=== PATIENT | female | born 1955 | race Hispanic/Latino ===

== ENCOUNTER 2023-06-23 06:39 | Emergency (ER) | payer OTHER ==
--- OUTSIDE RECORDS SUMMARY | 2023-06-23 06:45 | XMS REPORT | Continuity of Care Document ---
Author Name Unknown Address [address] [facility] [address] [place] [address] [facility] thconnect Address [address] [facility] [address] [place] [address] Care Team Providers Care Genetic Counsellor Name Role Phone Олег Bravo MD Primary Care Physician Gurjit_EFRAÍN Attending Clinician Unavailabl e [email or web address]_S Attending Clinician Unavaila JAYSON Brown Attending Clinician Unavailable Tammy Louise Attending Clinician [phone] Jayson Rothman DO Attending Clinician [phone] YEIMI HAJI Attending Clinician Unavailab Yeimi Garsia DO Attending Clinician [phone] Maco Rosales MD Attending Clinician [phone] MACO ROSALES Attending Clinician Unavailable TITI PARKER Attending Clinician Unavailable Doctor Unassigned, [place] Attending Clinician U navailable 2, [facility] Attending Clinician Unavailable Олег Bravo MD Attending Clinician + [phone] ОЛЕГ BRAVO Attending Clinician Unaamy lable Lab, [facility] Fam Pob I Attending Clinician Unavailab Sandra Randall Attending Clinician [phone] Pcp, Patient Does Not Have A Attending Clinician Delilah RICHARD, Marie Pettit Attending Clinician [phone] Tonio PARRA Vandana Hunter Attending Clinician Alma Robertson MD Attending Clinician [phone] Michelle Guadalupe MD Attending Clinician [phone] MICHELLE GUADALUPE Attending Clinician Unavailable Blayne LAMARIsrael Attending Clinician [phone] Jatinder Admitting Clinician Unavailabl e [email or web address]_S Admitting Clinician Unavaila JAYSON Brown Admitting Clinician Unavailable Alma Robertson MD Admitting Clinician ALMA ROBERTSON Admitting Clinician Unavailable Payers Payer Name Policy Type Policy Number Effective Date Expirati on Date Source [employer] (EPO) [id number] 2013 00:00:00 [employer] COMMERCIAL OUT OF NETWORK [id number] 2013 00:00:00 Problems Condition Name Condition Details Condition Category Status Onset Date Resolution Date Last Treatment Date Treating Clinician Comments Source Benign essential hypertensi on Benign Essential Hypertensi on Problem Active 11-04 00:00: 00 [facility] Type 2 diabetes mellitus Type 2 Diabetes Mellitus Problem Active 11-04 00:00: 00 [facility] Mixed hyperlipid emia Mixed Hyperlipid emia Problem Active 11-04 00:00: 00 [facility] Fever Fever Disease Active 06-20 00:00: 00 [facility] Primary hypothyroi dism Primary hypothyroi dism Disease Active 07-08 00:00: 00 [facility] Essential hypertensi on Essential hypertensi on Disease Active 07-08 00:00: 00 [facility] Dyslipidem ia Dyslipidem ia Disease Active 07-08 00:00: 00 [facility] Metabolic syndrome X Metabolic syndrome X Disease Active 07-08 00:00: 00 [facility] Type 2 diabetes mellitus without complicati on, without long-term current use of insulin Type 2 diabetes mellitus without complicati on, without long-term current use of insulin Disease Active 07-08 00:00: 00 [facility] Primary hypothyroi dism Primary hypothyroi dism Disease Active 07-08 00:00: 00 [facility] Allergies, Adverse Reactions, Alerts Allergy Name Allergy Type Status Severity Reaction(s) Onset Date Inactive Date Treating Clinician Comments Source Codeine Propensi ty to adverse reaction s Active Unknown - See comments 2011-02 00:00: 00 Nausea, vomiting, hypervent ilation [facility] CODEINE DRUG INGREDI Active Unknown-Cmnt 2011-02 00:00: 00 [facility] Codeine Allergy to substanc e Active Nausea, Vomiting [facility] e Social History Social Habit Start Date Stop Date Quantity Comments Source History SDOH Alcohol Frequency [facility] History SDOH Alcohol Std Drinks [facility] History SDOH Alcohol Binge [facility] Exposure to SARS-CoV-2 (event) 2021-12-30 00:00:00 2022-01-09 16:43:00 Not sure [facility] Alcohol intake 2020-03-13 00:00:00 2020-03-13 00:00:00 Current non-drinker of alcohol (finding) [facility] Tobacco use and exposure 2020-03-13 00:00:00 2020-03-13 00:00:00 Never used [facility] History of Social function 2019-11-02 00:00:00 2019-11-02 00:00:00 [facility] Alcohol Comment 2019-06-21 00:00:00 2019-06-21 00:00:00 once or twice a year [facility] Sex Assigned At 1955 00:00:00 1955 00:00:00 [facility] Smoking Status Start Date Stop Date Source Never Smoker [facility] Medications Ordered Medication Name Filled Medication Name Start Date Stop Date Current Medication? Ordering Clinician Indication Dosage Frequency Signature (SIG) Comments Components Source azithromyci n 250 mg tablet 2021-02 00:00: 00 Yes [id number] 250mg Take 1 tablet by mouth in the morning. [facility] albuterol 90 mcg/actuati on inhaler 2021-02 1 00:00: 00 Yes [id number] 2{puff} Inhale 2 Puffs every 4 (four) hours as needed for Wheezing or Shortness of Breath. [facility] METFORMIN ER 500 mg 24 hr tablet 2020-02 222 00:00: 00 Yes [id number] TAKE 2 TABLETS BY MOUTH TWICE A DAY [facility] METFORMIN ER 500 mg 24 hr tablet 8 00:00: 00 Yes [id number] TAKE 2 TABLETS BY MOUTH TWICE A DAY [facility] metformin ER 500 mg 24 hr tablet 03-13 00:00: 00 Yes [id number] 1000mg Take 2 tablets by mouth 2 (two) times daily. [facility] metformin ER 500 mg 24 hr tablet 11-01 00:00: 00 03-13 00:00 :00 No [id number] 1000mg Take 2 tablets by mouth 2 (two) times daily. [facility] metformin ER 500 mg 24 hr tablet 10-09 00:00: 00 11-01 00:00 :00 No 500mg Take 1 tablet by mouth 2 (two) times daily. [facility] pneumococca l vac polyvalent (PNEUMOVAX- 23) injection 0.5 mL 06-21 19:45: 00 06-21 19:48 :00 No .5mL 0.5 mL, Intramuscu lar, ONCE, 1 dose, Thu06/22/19 at 1445, Routine [facility] irbesartan 300 mg tablet 06-21 16:52: 31 06-21 00:00 :00 No 300mg Take 300 mg by mouth daily. [facility] enoxaparin (LOVENOX) injection 40 mg 06-21 14:00: 00 Yes 40mg 40 mg, Subcutaneo us, DAILY, First dose on Thu06/22/19 at 0900, Until Discontinu ed, Routine [facility] ketorolac (TORADOL) injection 15 mg 06-21 06:15: 00 06-21 05:16 :00 No 15mg 15 mg, Slow IV Push, ONCE, 1 dose, Thu06/22/19 at 0115, Routine
sales team member approving Restricted medication : JUAN ZIMMERMAN [facility] ondansetron (ZOFRAN (PF)) injection 4 mg 06-21 04:12: 42 Yes 4mg 4 mg, Slow IV Push, Q8HPRN, Starting Thu06/21/19 at 2312, Until Discontinu ed, Routine, Nausea and Vomiting (N/V) [facility] NaCl 0.9% (NS) IV infusion 1,000 mL 06-21 03:45: 00 06-21 04:30 :00 No 1000mL at 100 mL/hr, IV Infusion, ONCE, 1 dose, Thu06/21/19 at 2245, Routine
42cc/hr for 1L total
[facility] Sliding Scale Insulin - Aspart (NOVOLOG) + Fsbg Testing 06-21 02:00: 00 Yes Subcutaneo us, TID MEALS+HS, First dose on Thu06/21/19 at 2100, Until Discontinu ed, Routine [facility] vancomycin (VANCOCIN) 1,250 mg in NaCl 0.9% (NS) 250 mL piggyback 06-21 01:45: 00 06-21 14:52 :10 No 15mg/kg 1,250 mg (rounded from 1,156.5 mg = 15 mg/kg ?77.1 kg), IV Piggyback, Q12H ABX, First dose on Thu06/21/19 at 2045, Until Discontinu ed, 250 mL
Reas on for Anti-Infec tive: Empiric Therapy for Suspected Infection< br>Empiric Therapy Site: Other
O ther site: other
D uration of therapy: 7 days [facility] piperacilli n-tazobacta m (ZOSYN) 3.375 gram/50 mL Piggyback RTU 3.375 g 06-21 01:45: 00 06-21 14:52 :10 No 3.375g 3.375 g, IV Piggyback, Q6H ABX, First dose on Thu06/21/19 at 2045, Until Discontinu ed, 50 mL
Reas on for Anti-Infec tive: Empiric Therapy for Suspected Infection< br>Empiric Therapy Site: Blood
D uration of therapy: 72 hours [facility] lidocaine (LIDODERM) 5 % (700 mg/patch) patch 1 Patch 06-20 23:15: 00 06-21 16:25 :00 No 1{patch } 1 Patch, Topical, Administer over 12 Hours, ONCE, 1 dose, 06/21/19 at 1815, Routine [facility] ketorolac (TORADOL) injection 30 mg 06-20 17:45: 00 06-20 16:28 :00 No 30mg 30 mg, Slow IV Push, ONCE, 1 dose, 06/21/19 at 1245, SID
Fa culty member approving Restricted medication : VANDANA KAPLAN [facility] ondansetron (ZOFRAN (PF)) injection 4 mg 06-20 17:30: 00 06-20 16:30 :00 No 4mg 4 mg, Slow IV Push, ONCE, 1 dose, 06/21/19 at 1230, SID [facility] NaCl 0.9% (NS) bolus infusion 1,000 mL 06-20 17:00: 00 06-20 19:20 :00 No 1000mL at 999 mL/hr, 1,000 mL, IV Infusion, ONCE, 1 dose, 06/21/19 at 1200, STAT [facility] vancomycin (VANCOCIN) 1,250 mg in NaCl 0.9% (NS) 250 mL piggyback 06-20 17:00: 00 06-20 18:57 :00 No 15mg/kg 1,250 mg (rounded from 1,156.5 mg = 15 mg/kg ?77.1 kg), IV Piggyback, ONCE, 1 dose, 06/21/19 at 1200, 250 mL
Reas on for Anti-Infec tive: Empiric Therapy for Suspected Infection< br>Empiric Therapy Site: Other
O ther site: other
D uration of therapy: 7 days [facility] losartan 100 mg tablet 05-30 00:00: 00 Yes [id number] 100mg Take 1 tablet by mouth daily. [facility] metformin ER 500 mg 24 hr tablet 05-29 00:00: 00 Yes 500mg Take 500 mg by mouth 2 (two) times daily. [facility] metformin ER 500 mg 24 hr tablet 02-25 00:00: 00 06-21 00:00 :00 No TAKE 2 TABLETS TWICE A DAY [facility] dapaglifloz in (FARXIGA) 5 mg tablet 02-25 00:00: 00 06-20 00:00 :00 No [id number] 5mg Take 1 tablet by mouth every morning. [facility] irbesartan 300 mg tablet 02-25 00:00: 00 05-30 00:00 :00 No [id number] 300mg Take 1 tablet by mouth at bedtime. [facility] ondansetron (ZOFRAN-ODT ) disintegrat ing tablet 4 mg 11-04 03:15: 00 11-04 15:14 :00 No 4mg 4 mg, Oral, ONCE, 1 dose, Thu11/03/18 at 2215, Routine [facility] acetaminoph en (TYLENOL) tablet 650 mg 11-04 02:45: 00 11-04 01:33 :00 No 650mg 650 mg, Oral, ONCE, 1 dose, Thu11/03/18 at 2145, SID [facility] ondansetron (ZOFRAN ODT) 4 mg disintegrat ing tablet 11-03 00:00: 00 06-20 00:00 :00 No [id number] 4mg Take 1 tablet by mouth every 8 (eight) hours as needed for Nausea and Vomiting (N/V). [facility] proMETHazin e (PHENERGAN) 12.5 mg in NaCl 0.9% (NS) 50 mL piggyback 11-01 16:45: 00 11-01 15:43 :00 No 12.5mg 12.5 mg, IV Piggyback, ONCE, 1 dose, Thu11/01/18 at 1145, 50 mL [facility] NaCl 0.9% (NS) bolus infusion 1,000 mL 11-01 16:00: 00 11-01 17:01 :00 No 1000mL at 999 mL/hr, 1,000 mL, IV Piggyback, ONCE, 1 dose, Thu11/01/18 at 1100, STAT [facility] ondansetron (ZOFRAN-ODT ) disintegrat ing tablet 4 mg 11-01 15:15: 00 11-01 14:06 :00 No 4mg 4 mg, Oral, ONCE, 1 dose, Thu11/01/18 at 1015, Routine [facility] cephALEXin (KEFLEX) 500 mg capsule 11-01 00:00: 00 11-09 04:59 :00 No [id number] 500mg Take 1 capsule by mouth 3 (three) times daily for 7 days. [facility] ondansetron 4 mg disintegrat ing tablet 11-01 00:00: 00 11-03 00:00 :00 No [id number] 4mg Take 1 tablet by mouth every 8 (eight) hours as needed for Nausea and Vomiting (N/V). [facility] penicillin g benzathine (BICILLIN L-A) injection 1.2 Million Units 10-12 03:45: 00 10-12 02:44 :00 No 1.210 1.2 Million Units, Intramuscu lar, ONCE, 1 dose, Thu10/11/18 at 2245, SID
Re ason for Anti-Infec tive: Empiric Therapy for Suspected Infection< br>Empiric Therapy Site: HEENT
D uration of therapy: 72 hours [facility] ketorolac (TORADOL) injection 60 mg 10-12 03:30: 00 10-12 02:45 :00 No 60mg 60 mg, Intramuscu lar, ONCE, 1 dose, 10/11/18 at 2230, SID
Fa culty member approving Restricted medication : [place] WHITNEY [facility] ibuprofen 600 mg tablet 10-11 00:00: 00 06-20 00:00 :00 No [id number] 600mg Take 1 tablet by mouth every 6 (six) hours as needed for Pain (scale 4-6). [facility] irbesartan 300 mg tablet 09-20 00:00: 00 Yes [id number] 300mg Take 1 tablet by mouth at bedtime. [facility] flash glucose sensor (FREESTYLE ADELSO 14 DAY SENSOR) Kit 06-28 00:00: 00 Yes [id number] 1{each} 1 Each every 14 (fourteen) days. [facility] flash glucose scanning reader (FREESTYLE ADELSO 14 DAY READER) Misc 06-28 00:00: 00 03-13 00:00 :00 No [id number] 1{each} 1 Each daily. [facility] irbesartan 300 mg tablet 06-28 00:00: 00 09-20 00:00 :00 No [id number] 300mg Take 1 tablet by mouth at bedtime. [facility] METFORMIN ER 500 mg 24 hr tablet 06-21 00:00: 00 Yes TAKE 2 TABLETS TWICE A DAY [facility] loratadine 10 mg tablet 04-21 00:00: 00 06-20 00:00 :00 No [id number] 10mg Take 1 tablet by mouth daily. [facility] hydrOXYzine 10 mg tablet 04-21 00:00: 00 06-20 00:00 :00 No [id number] 10mg Take 1 tablet by mouth every 6 (six) hours. [facility] irbesartan 150 mg tablet Take 1 tablet every day by oral route. irbesartan 150 mg tablet Take 1 tablet every day by oral route. No 1 Q1D irbesartan 150 mg tablet Take 1 tablet every day by oral route. [facility] Ozempic 2 mg/dose (8 mg/3 mL) subcutaneou s pen injector Inject 2 mg every week by subcutaneou s route. Ozempic 2 mg/dose (8 mg/3 mL) subcutaneou s pen injector Inject 2 mg every week by subcutaneou s route. No 2mg Q1W Ozempic 2 mg/dose (8 mg/3 mL) subcutaneo us pen injector Inject 2 mg every week by subcutaneo us route. [facility] pravastatin 20 mg tablet Take 1 tablet every day by oral route at bedtime. pravastatin 20 mg tablet Take 1 tablet every day by oral route at bedtime. No 1 Q1D pravastati n 20 mg tablet Take 1 tablet every day by oral route at bedtime. [facility] ibuprofen 800 mg tablet TAKE ONE TABLET BY MOUTH THREE TIMES A DAY ibuprofen 800 mg tablet TAKE ONE TABLET BY MOUTH THREE TIMES A DAY No ibuprofen 800 mg tablet TAKE ONE TABLET BY MOUTH THREE TIMES A DAY [facility] irbesartan 150 mg tablet TAKE 1 TABLET BY MOUTH EVERY DAY irbesartan 150 mg tablet TAKE 1 TABLET BY MOUTH EVERY DAY No irbesartan 150 mg tablet TAKE 1 TABLET BY MOUTH EVERY DAY [facility] Ozempic 2 mg/dose (8 mg/3 mL) subcutaneou s pen injector INJECT 2 MG SUBCUTANEOU SLY ONCE WEEKLY Ozempic 2 mg/dose (8 mg/3 mL) subcutaneou s pen injector INJECT 2 MG SUBCUTANEOU SLY ONCE WEEKLY No Ozempic 2 mg/dose (8 mg/3 mL) subcutaneo us pen injector INJECT 2 MG SUBCUTANEO USLY ONCE WEEKLY [facility] pravastatin 20 mg tablet Take 1 tablet every day by oral route at bedtime. pravastatin 20 mg tablet Take 1 tablet every day by oral route at bedtime. No pravastati n 20 mg tablet Take 1 tablet every day by oral route at bedtime. [facility] amoxicillin 875 mg-potassiu m clavulanate 125 mg tablet Take 1 tablet every 12 hours by oral route with meal(s) for 10 days. amoxicillin 875 mg-potassiu m clavulanate 125 mg tablet Take 1 tablet every 12 hours by oral route with meal(s) for 10 days. No 1 Q12H amoxicilli n 875 mg-potassi um clavulanat e 125 mg tablet Take 1 tablet every 12 hours by oral route with meal(s) for 10 days. [facility] ibuprofen 800 mg tablet Take 1 tablet 3 times a day by oral route with meal(s). for pain/swelli ng ibuprofen 800 mg tablet Take 1 tablet 3 times a day by oral route with meal(s). for pain/swelli ng No 1 TID ibuprofen 800 mg tablet Take 1 tablet 3 times a day by oral route with meal(s). for pain/swell ing [facility] irbesartan 150 mg tablet Take 1 tablet every day by oral route. irbesartan 150 mg tablet Take 1 tablet every day by oral route. No 1 Q1D irbesartan 150 mg tablet Take 1 tablet every day by oral route. [facility] Ozempic 2 mg/dose (8 mg/3 mL) subcutaneou s pen injector Inject 2 mg every week by subcutaneou s route. Ozempic 2 mg/dose (8 mg/3 mL) subcutaneou s pen injector Inject 2 mg every week by subcutaneou s route. No 2mg Q1W Ozempic 2 mg/dose (8 mg/3 mL) subcutaneo us pen injector Inject 2 mg every week by subcutaneo us route. [facility] pravastatin 20 mg tablet Take 1 tablet every day by oral route at bedtime. pravastatin 20 mg tablet Take 1 tablet every day by oral route at bedtime. No 1 Q1D pravastati n 20 mg tablet Take 1 tablet every day by oral route at bedtime. [facility] Immunizations Ordered Immunization Name Filled Immunization Name Date Status Comments Source SARS-COV-2 COVID-19 PFIZER VACCINE 2020-04-13 00:00:00 Completed [facility] SARS-COV-2 COVID-19 PFIZER VACCINE 2020-04-13 00:00:00 Completed [facility] SARS-COV-2 COVID-19 PFIZER VACCINE 2020-04-13 00:00:00 Completed [facility] SARS-COV-2 COVID-19 PFIZER VACCINE 2020-04-13 00:00:00 Completed [facility] SARS-COV-2 COVID-19 PFIZER VACCINE 2020-04-13 00:00:00 Completed [facility] SARS-COV-2 COVID-19 PFIZER VACCINE 2020-04-13 00:00:00 Completed [facility] SARS-COV-2 COVID-19 PFIZER VACCINE 2020-04-13 00:00:00 Completed [facility] Zoster Vaccine Recombinant 2020-03-21 00:00:00 Completed [facility] Zoster Vaccine Recombinant 2020-03-21 00:00:00 Completed [facility] Zoster Vaccine Recombinant 2020-03-21 00:00:00 Completed [facility] Zoster Vaccine Recombinant 2020-03-21 00:00:00 Completed [facility] Zoster Vaccine Recombinant 2020-03-21 00:00:00 Completed [facility] Zoster Vaccine Recombinant 2020-03-21 00:00:00 Completed [facility] Zoster Vaccine Recombinant 2020-03-21 00:00:00 Completed [facility] Zoster Vaccine Recombinant 2020-03-21 00:00:00 Completed [facility] Zoster Vaccine Recombinant 2020-03-21 00:00:00 Completed [facility] SARS-COV-2 COVID-19 PFIZER VACCINE 2020-03-13 00:00:00 Completed [facility] SARS-COV-2 COVID-19 PFIZER VACCINE 2020-03-13 00:00:00 Completed [facility] SARS-COV-2 COVID-19 PFIZER VACCINE 2020-03-13 00:00:00 Completed [facility] SARS-COV-2 COVID-19 PFIZER VACCINE 2020-03-13 00:00:00 Completed [facility] SARS-COV-2 COVID-19 PFIZER VACCINE 2020-03-13 00:00:00 Completed [facility] SARS-COV-2 COVID-19 PFIZER VACCINE 2020-03-13 00:00:00 Completed [facility] SARS-COV-2 COVID-19 PFIZER VACCINE 2020-03-13 00:00:00 Completed [facility] SARS-COV-2 COVID-19 PFIZER VACCINE 2020-03-13 00:00:00 Completed [facility] SARS-COV-2 COVID-19 PFIZER VACCINE 2020-03-13 00:00:00 Completed [facility] SARS-COV-2 COVID-19 PFIZER VACCINE 2020-03-13 00:00:00 Completed [facility] SARS-COV-2 COVID-19 PFIZER VACCINE 2020-03-13 00:00:00 Completed [facility] TDAP 2019-11-28 00:00:00 Completed [facility] TDAP 2019-11-28 00:00:00 Completed [facility] TDAP 2019-11-28 00:00:00 Completed [facility] TDAP 2019-11-28 00:00:00 Completed [facility] TDAP 2019-11-28 00:00:00 Completed [facility] TDAP 2019-11-28 00:00:00 Completed [facility] Pneumococcal Polysaccharide, PPSV23 (PNEUMOVAX) 2019-11-28 00:00:00 Completed [facility] TDAP 2019-11-28 00:00:00 Completed [facility] Pneumococcal Polysaccharide, PPSV23 (PNEUMOVAX) 2019-11-28 00:00:00 Completed [facility] TDAP 2019-11-28 00:00:00 Completed [facility] Pneumococcal Polysaccharide, PPSV23 (PNEUMOVAX) 2019-11-28 00:00:00 Completed [facility] TDAP 2019-11-28 00:00:00 Completed [facility] Pneumococcal Polysaccharide, PPSV23 (PNEUMOVAX) 2019-11-28 00:00:00 Completed [facility] TDAP 2019-11-28 00:00:00 Completed [facility] Pneumococcal Polysaccharide, PPSV23 (PNEUMOVAX) 2019-11-28 00:00:00 Completed [facility] TDAP 2019-11-28 00:00:00 Completed [facility] Pneumococcal Polysaccharide, PPSV23 (PNEUMOVAX) 2019-11-28 00:00:00 Completed [facility] TDAP 2019-11-28 00:00:00 Completed [facility] Pneumococcal Polysaccharide, PPSV23 (PNEUMOVAX) 2019-11-28 00:00:00 Completed [facility] TDAP 2019-11-28 00:00:00 Completed [facility] Pneumococcal Polysaccharide, PPSV23 (PNEUMOVAX) 2019-11-28 00:00:00 Completed [facility] TDAP 2019-11-28 00:00:00 Completed [facility] Pneumococcal Polysaccharide, PPSV23 (PNEUMOVAX) 2019-11-28 00:00:00 Completed [facility] TDAP 2019-11-28 00:00:00 Completed [facility] Pneumococcal Polysaccharide, PPSV23 (PNEUMOVAX) 2019-11-28 00:00:00 Completed [facility] TDAP 2019-11-28 00:00:00 Completed [facility] Pneumococcal Polysaccharide, PPSV23 (PNEUMOVAX) 2019-11-28 00:00:00 Completed [facility] TDAP 2019-11-28 00:00:00 Completed [facility] Pneumococcal Polysaccharide, PPSV23 (PNEUMOVAX) 2019-11-28 00:00:00 Completed [facility] Influenza Virus Vaccine 2019-10-18 00:00:00 Completed [facility] Zoster(Zostavax)(Clarisse ngles) 2019-10-18 00:00:00 Completed [facility] Influenza Virus Vaccine 2019-10-18 00:00:00 Completed [facility] Zoster(Zostavax)(Clarisse ngles) 2019-10-18 00:00:00 Completed [facility] Influenza Virus Vaccine 2019-10-18 00:00:00 Completed [facility] Zoster(Zostavax)(Clarisse ngles) 2019-10-18 00:00:00 Completed [facility] Influenza Virus Vaccine 2019-10-18 00:00:00 Completed [facility] Zoster(Zostavax)(Clarisse ngles) 2019-10-18 00:00:00 Completed [facility] Influenza Virus Vaccine 2019-10-18 00:00:00 Completed [facility] Zoster(Zostavax)(Clarisse ngles) 2019-10-18 00:00:00 Completed [facility] Influenza Virus Vaccine 2019-10-18 00:00:00 Completed [facility] Zoster(Zostavax)(Clarisse ngles) 2019-10-18 00:00:00 [facility] [facility] Influenza Virus Vaccine 2019-10-18 00:00:00 Completed [facility] Zoster(Zostavax)(Clarisse ngles) 2019-10-18 00:00:00 Completed [facility] Zoster Vaccine Recombinant 2019-10-18 00:00:00 Completed [facility] Influenza Virus Vaccine 2019-10-18 00:00:00 Completed [facility] Zoster(Zostavax)(Clarisse ngles) 2019-10-18 00:00:00 Completed [facility] Zoster Vaccine Recombinant 2019-10-18 00:00:00 Completed [facility] Influenza Virus Vaccine 2019-10-18 00:00:00 Completed [facility] Zoster(Zostavax)(Clarisse ngles) 2019-10-18 00:00:00 Completed [facility] Zoster Vaccine Recombinant 2019-10-18 00:00:00 Completed [facility] Influenza Virus Vaccine 2019-10-18 00:00:00 Completed [facility] Zoster(Zostavax)(Clarisse ngles) 2019-10-18 00:00:00 Completed [facility] Zoster Vaccine Recombinant 2019-10-18 00:00:00 Completed [facility] Influenza Virus Vaccine 2019-10-18 00:00:00 Completed [facility] Zoster(Zostavax)(Clarisse ngles) 2019-10-18 00:00:00 Completed [facility] Zoster Vaccine Recombinant 2019-10-18 00:00:00 Completed [facility] Influenza Virus Vaccine 2019-10-18 00:00:00 Completed [facility] Zoster(Zostavax)(Clarisse ngles) 2019-10-18 00:00:00 Completed [facility] Zoster Vaccine Recombinant 2019-10-18 00:00:00 Completed [facility] Influenza Virus Vaccine 2019-10-18 00:00:00 Completed [facility] Zoster(Zostavax)(Clarisse ngles) 2019-10-18 00:00:00 Completed [facility] Zoster Vaccine Recombinant 2019-10-18 00:00:00 Completed [facility] Influenza Virus Vaccine 2019-10-18 00:00:00 Completed [facility] Zoster(Zostavax)(Clarisse ngles) 2019-10-18 00:00:00 Completed [facility] Zoster Vaccine Recombinant 2019-10-18 00:00:00 Completed [facility] Influenza Virus Vaccine 2019-10-18 00:00:00 Completed [facility] Zoster(Zostavax)(Clarisse ngles) 2019-10-18 00:00:00 Completed [facility] Zoster Vaccine Recombinant 2019-10-18 00:00:00 Completed [facility] Influenza Virus Vaccine 2019-10-18 00:00:00 Completed [facility] Zoster(Zostavax)(Clarisse ngles) 2019-10-18 00:00:00 Completed [facility] Zoster Vaccine Recombinant 2019-10-18 00:00:00 Completed [facility] Influenza Virus Vaccine 2019-10-18 00:00:00 Completed [facility] Zoster(Zostavax)(Clarisse ngles) 2019-10-18 00:00:00 Completed [facility] Zoster Vaccine Recombinant 2019-10-18 00:00:00 Completed [facility] Influenza Virus Vaccine 2019-10-18 00:00:00 Completed [facility] Zoster(Zostavax)(Clarisse ngles) 2019-10-18 00:00:00 Completed [facility] Zoster Vaccine Recombinant 2019-10-18 00:00:00 Completed [facility] Influenza Virus Vaccine 2019-10-18 00:00:00 Completed [facility] Zoster(Zostavax)(Clarisse ngles) 2019-10-18 00:00:00 Completed [facility] Zoster Vaccine Recombinant 2019-10-18 00:00:00 Completed [facility] Influenza Virus Vaccine 2019-10-18 00:00:00 Completed [facility] Zoster(Zostavax)(Clarisse ngles) 2019-10-18 00:00:00 Completed [facility] Zoster Vaccine Recombinant 2019-10-18 00:00:00 Completed [facility] Influenza Virus Vaccine 2019-10-18 00:00:00 Completed [facility] Zoster(Zostavax)(Clarisse ngles) 2019-10-18 00:00:00 Completed [facility] Zoster Vaccine Recombinant 2019-10-18 00:00:00 Completed [facility] Influenza Virus Vaccine 2019-10-18 00:00:00 Completed [facility] Zoster(Zostavax)(Clarisse ngles) 2019-10-18 00:00:00 Completed [facility] Zoster Vaccine Recombinant 2019-10-18 00:00:00 Completed [facility] Influenza Virus Vaccine 2019-10-18 00:00:00 Completed [facility] Zoster(Zostavax)(Clarisse fried) 2019-10-18 00:00:00 Completed [facility] Zoster Vaccine Recombinant 2019-10-18 00:00:00 Completed [facility] Pneumococcal Polysaccharide, PPSV23 (PNEUMOVAX) 2019-06-22 00:00:00 Completed [facility] Pneumococcal Polysaccharide, PPSV23 (PNEUMOVAX) 2019-06-22 00:00:00 Completed [facility] Pneumococcal Polysaccharide, PPSV23 (PNEUMOVAX) 2019-06-22 00:00:00 Completed [facility] Pneumococcal Polysaccharide, PPSV23 (PNEUMOVAX) 2019-06-22 00:00:00 Completed [facility] Pneumococcal Polysaccharide, PPSV23 (PNEUMOVAX) 2019-06-22 00:00:00 Completed [facility] Pneumococcal Polysaccharide, PPSV23 (PNEUMOVAX) 2019-06-22 00:00:00 Completed [facility] Pneumococcal Polysaccharide, PPSV23 (PNEUMOVAX) 2019-06-22 00:00:00 Completed [facility] Pneumococcal Polysaccharide, PPSV23 (PNEUMOVAX) 2019-06-22 00:00:00 Completed [facility] Pneumococcal Polysaccharide, PPSV23 (PNEUMOVAX) 2019-06-22 00:00:00 Completed [facility] Pneumococcal Polysaccharide, PPSV23 (PNEUMOVAX) 2019-06-22 00:00:00 Completed [facility] Pneumococcal Polysaccharide, PPSV23 (PNEUMOVAX) 2019-06-22 00:00:00 Completed [facility] Pneumococcal Polysaccharide, PPSV23 (PNEUMOVAX) 2019-06-22 00:00:00 Completed [facility] Pneumococcal Polysaccharide, PPSV23 (PNEUMOVAX) 2019-06-22 00:00:00 Completed [facility] Pneumococcal Polysaccharide, PPSV23 (PNEUMOVAX) 2019-06-22 00:00:00 Completed [facility] Pneumococcal Polysaccharide, PPSV23 (PNEUMOVAX) 2019-06-22 00:00:00 Completed [facility] Pneumococcal Polysaccharide, PPSV23 (PNEUMOVAX) 2019-06-22 00:00:00 Completed [facility] Pneumococcal Polysaccharide, PPSV23 (PNEUMOVAX) 2019-06-22 00:00:00 Completed [facility] Pneumococcal Polysaccharide, PPSV23 (PNEUMOVAX) 2019-06-22 00:00:00 Completed [facility] Pneumococcal Polysaccharide, PPSV23 (PNEUMOVAX) 2019-06-22 00:00:00 Completed [facility] Pneumococcal Polysaccharide, PPSV23 (PNEUMOVAX) 2019-06-22 00:00:00 Completed [facility] Pneumococcal Polysaccharide, PPSV23 (PNEUMOVAX) 2019-06-22 00:00:00 Completed [facility] Pneumococcal Polysaccharide, PPSV23 (PNEUMOVAX) 2019-06-22 00:00:00 Completed [facility] Pneumococcal Polysaccharide, PPSV23 (PNEUMOVAX) 2019-06-22 00:00:00 Completed [facility] Pneumococcal Polysaccharide, PPSV23 (PNEUMOVAX) 2019-06-22 00:00:00 Completed [facility] Pneumococcal Polysaccharide, PPSV23 (PNEUMOVAX) 2019-06-22 00:00:00 Completed [facility] Pneumococcal Polysaccharide, PPSV23 (PNEUMOVAX) 2019-06-22 00:00:00 Completed [facility] Pneumococcal Polysaccharide, PPSV23 (PNEUMOVAX) 2019-06-22 00:00:00 Completed [facility] Pneumococcal Polysaccharide, PPSV23 (PNEUMOVAX) 2019-06-22 00:00:00 Completed [facility] Pneumococcal Polysaccharide, PPSV23 (PNEUMOVAX) 2019-06-22 00:00:00 Completed [facility] Influenza Virus Vaccine 2018-11-08 00:00:00 Completed [facility] Influenza Virus Vaccine 2018-11-08 00:00:00 Completed [facility] Influenza Virus Vaccine 2018-11-08 00:00:00 Completed [facility] Influenza Virus Vaccine 2018-11-08 00:00:00 Completed [facility] Influenza Virus Vaccine 2018-11-08 00:00:00 Completed [facility] Influenza Virus Vaccine 2018-11-08 00:00:00 Completed [facility] Influenza Virus Vaccine 2018-11-08 00:00:00 Completed [facility] Influenza Virus Vaccine 2018-11-08 00:00:00 Completed [facility] Influenza Virus Vaccine 2018-11-08 00:00:00 Completed [facility] Influenza Virus Vaccine 2018-11-08 00:00:00 Completed [facility] Influenza Virus Vaccine 2018-11-08 00:00:00 Completed [facility] Influenza Virus Vaccine 2018-11-08 00:00:00 Completed [facility] Influenza Virus Vaccine 2018-11-08 00:00:00 Completed [facility] Influenza Virus Vaccine 2018-11-08 00:00:00 Completed [facility] Influenza Virus Vaccine 2018-11-08 00:00:00 Completed [facility] Influenza Virus Vaccine 2018-11-08 00:00:00 Completed [facility] Influenza Virus Vaccine 2018-11-08 00:00:00 Completed [facility] Influenza Virus Vaccine 2018-11-08 00:00:00 Completed [facility] Influenza Virus Vaccine 2018-11-08 00:00:00 Completed [facility] Influenza Virus Vaccine 2018-11-08 00:00:00 Completed [facility] Influenza Virus Vaccine 2018-11-08 00:00:00 Completed [facility] Influenza Virus Vaccine 2018-11-08 00:00:00 Completed [facility] Influenza Virus Vaccine 2018-11-08 00:00:00 Completed [facility] Influenza Virus Vaccine 2018-11-08 00:00:00 Completed [facility] Influenza Virus Vaccine 2018-11-08 00:00:00 Completed [facility] Influenza Virus Vaccine 2018-11-08 00:00:00 Completed [facility] Influenza Virus Vaccine 2018-11-08 00:00:00 Completed [facility] Influenza Virus Vaccine 2018-11-08 00:00:00 Completed [facility] Influenza Virus Vaccine 2018-11-08 00:00:00 Completed [facility] Influenza Virus Vaccine 2018-11-08 00:00:00 Completed [facility] Influenza Virus Vaccine 2018-11-08 00:00:00 Completed [facility] Influenza Virus Vaccine 2018-11-08 00:00:00 Completed [facility] Influenza Virus Vaccine 2018-11-08 00:00:00 Completed [facility] Influenza Virus Vaccine 2018-11-08 00:00:00 Completed [facility] Influenza Virus Vaccine 2018-11-08 00:00:00 Completed [facility] Pneumococcal conjugate PCV20, polysaccharide [id number] conjugate, adjuvant, PF Pneumococcal conjugate PCV20, polysaccharide [id number] conjugate, adjuvant, PF Unknown Completed [facility] Influenza vaccine, quadrivalent, adjuvanted - ML Influenza vaccine, quadrivalent, adjuvanted - ML Unknown Completed [facility] influenza, high-dose, quadrivalent - ML influenza, high-dose, quadrivalent - ML Unknown Completed [facility] influenza, injectable, quadrivalent, preservative free - ML influenza, injectable, quadrivalent, preservative free - ML Unknown Completed [facility] zoster recombinant - ML zoster recombinant - ML Unknown Completed [facility] Tdap - ML Tdap - ML Unknown Completed [facility] zoster recombinant - ML zoster recombinant - ML Unknown Completed [facility] influenza, injectable, quadrivalent, preservative free - ML influenza, injectable, quadrivalent, preservative free - ML Unknown Completed [facility] pneumococcal polysaccharide PPV23 - ML pneumococcal polysaccharide PPV23 - ML Unknown Completed [facility] Influenza Virus Vaccine Unknown Completed [facility] Pneumococcal Polysaccharide, PPSV23 (PNEUMOVAX) Unknown Completed [facility] Influenza Virus Vaccine Unknown Completed [facility] Zoster(Zostavax)(Clarisse ngles) Unknown Completed [facility] Zoster Vaccine Recombinant Unknown Completed [facility] TDAP Unknown Completed [facility] Pneumococcal Polysaccharide, PPSV23 (PNEUMOVAX) Unknown Completed [facility] SARS-COV-2 COVID-19 PFIZER VACCINE Unknown Completed [facility] Zoster Vaccine Recombinant Unknown Completed [facility] Vital Signs Vital Name Observation Time Observation Value Comments S ource BMI (Body Mass Index) 2023-03-24 00:00:00 28.2 kg/m2 [facility] Height 2023-03-24 00:00:00 64 [in_i] [facility] BP Diastolic 2023-03-24 00:00:00 91 mm[Hg] [facility] BP Systolic 2023-03-24 00:00:00 155 mm[Hg] [facility] Body Weight 2023-03-24 00:00:00 164 [lb_av] [facility] BP Systolic 2022-11-04 00:00:00 158 mm[Hg] [facility] BP Diastolic 2022-11-04 00:00:00 83 mm[Hg] [facility] BMI (Body Mass Index) 2022-11-04 00:00:00 28 kg/m2 [facility] Body Weight 2022-11-04 00:00:00 163 [lb_av] [facility] Height 2022-11-04 00:00:00 64 [in_i] [facility] Systolic blood pressure 2022-01-09 22:44:00 156 mm[Hg] [facility] Diastolic blood pressure 2022-01-09 22:44:00 93 mm[Hg] [facility] Heart rate 2022-01-09 22:44:00 83 /min [facility] Body temperature 2022-01-09 22:44:00 36.72 Barbara [facility] Respiratory rate 2022-01-09 22:44:00 18 /min [facility] Body height 2022-01-09 22:44:00 162.6 cm [facility] Body weight 2022-01-09 22:44:00 72.576 kg [facility] BMI 2022-01-09 22:44:00 27.46 kg/m2 [facility] Oxygen saturation in Arterial blood by Pulse oximetry 2022-01-09 22:44:00 100 /min [facility] Systolic blood pressure 2021-12-06 16:08:00 171 mm[Hg] [facility] Diastolic blood pressure 2021-12-06 16:08:00 88 mm[Hg] [facility] Heart rate 2021-12-06 16:08:00 100 /min [facility] Body temperature 2021-12-06 16:08:00 37.72 Barbara [facility] Respiratory rate 2021-12-06 16:08:00 18 /min [facility] Body height 2021-12-06 16:08:00 162.6 cm [facility] Body weight 2021-12-06 16:08:00 73.483 kg [facility] BMI 2021-12-06 16:08:00 27.81 kg/m2 [facility] Oxygen saturation in Arterial blood by Pulse oximetry 2021-12-06 16:08:00 98 /min [facility] Systolic blood pressure 2020-03-13 20:09:00 131 mm[Hg] [facility] Diastolic blood pressure 2020-03-13 20:09:00 83 mm[Hg] [facility] Heart rate 2020-03-13 20:09:00 96 /min [facility] 2020-03-13 20:09:00 19 /min [facility] Body height 2020-03-13 20:09:00 162.6 cm [facility] Body weight 2020-03-13 20:09:00 73.755 kg [facility] BMI 2020-03-13 20:09:00 27.91 kg/m2 [facility] Systolic blood pressure 2019-11-02 14:20:00 134 mm[Hg] [facility] Diastolic blood pressure 2019-11-02 14:20:00 77 mm[Hg] [facility] Heart rate 2019-11-02 14:20:00 70 /min [facility] 2019-11-02 14:20:00 162.6 cm [facility] Body weight 2019-11-02 14:20:00 80.74 kg [facility] BMI 2019-11-02 14:20:00 30.55 kg/m2 [facility] Oxygen saturation in Arterial blood by Pulse oximetry 2019-11-02 14:20:00 98 /min [facility] Systolic blood pressure 2019-06-22 16:17:00 131 mm[Hg] standing [facility] Diastolic blood pressure 2019-06-22 16:17:00 72 mm[Hg] standing [facility] Heart rate 2019-06-22 16:17:00 91 /min [facility] Oxygen saturation in Arterial blood by Pulse oximetry 2019-06-22 16:17:00 98 /min [facility] Body temperature 2019-06-22 16:12:00 36.67 Barbara [facility] Respiratory rate 2019-06-22 16:12:00 18 /min [facility] Body height 2019-06-22 04:16:00 162.6 cm [facility] Body weight 2019-06-22 04:16:00 77.111 kg [facility] BMI 2019-06-22 04:16:00 29.18 kg/m2 [facility] Systolic blood pressure 2018-11-04 00:48:00 128 mm[Hg] [facility] Diastolic blood pressure 2018-11-04 00:48:00 95 mm[Hg] [facility] Heart rate 2018-11-04 00:48:00 80 /min [facility] Body temperature 2018-11-04 00:48:00 36 Barbara [facility] Respiratory rate 2018-11-04 00:48:00 15 /min [facility] Oxygen saturation in Arterial blood by Pulse oximetry 2018-11-04 00:48:00 96 /min [facility] Body weight 2018-11-04 00:42:53 79.379 kg [facility] BMI 2018-11-04 00:42:53 30.04 kg/m2 [facility] Systolic blood pressure 2018-11-01 15:45:00 147 mm[Hg] [facility] Diastolic blood pressure 2018-11-01 15:45:00 81 mm[Hg] [facility] Heart rate 2018-11-01 15:45:00 80 /min [facility] Respiratory rate 2018-11-01 15:45:00 18 /min [facility] Oxygen saturation in Arterial blood by Pulse oximetry 2018-11-01 15:45:00 100 /min [facility] Body temperature 2018-11-01 14:02:00 36.72 Barbara [facility] Body height 2018-11-01 14:02:00 162.6 cm [facility] Body weight 2018-11-01 14:02:00 79.379 kg [facility] BMI 2018-11-01 14:02:00 30.04 kg/m2 [facility] Systolic blood pressure 2018-10-12 01:17:00 165 mm[Hg] [facility] Diastolic blood pressure 2018-10-12 01:17:00 84 mm[Hg] [facility] Heart rate 2018-10-12 01:17:00 75 /min [facility] Body temperature 2018-10-12 01:17:00 36.56 Barbara [facility] Respiratory rate 2018-10-12 01:17:00 18 /min [facility] Body weight 2018-10-12 01:17:00 81.647 kg [facility] BMI 2018-10-12 01:17:00 30.90 kg/m2 [facility] Oxygen saturation in Arterial blood by Pulse oximetry 2018-10-12 01:17:00 98 /min [facility] Procedures Procedure Date / Time Performed Performing Clinician Source COMP. METABOLIC PANEL (84784) 2022-01-09 22:48:00 Jayson Rothman [facility] CBC WITH DIFF 2022-01-09 22:48:00 Jayson Rothman [facility] RAPID INFLUENZA A/B 2022-01-09 22:48:00 Gracie Rothman [facility] CONSENT/REFUSAL FOR DIAGNOSIS AND TREATMENT 2022-01-09 22:44:29 Doctor Unassigned, [place] [facility] CONSENT/REFUSAL FOR DIAGNOSIS AND TREATMENT 2021-12-06 16:07:37 Doctor Unassigned, [place] [facility] EXTERNAL PROVIDER RECORDS 2020-04-12 06:01:00 Do ctor Unassigned, [place] [facility] ASSIGNMENT OF BENEFITS 2020-03-13 20:00:38 Docto r Unassigned, [place] [facility] POCT HEMOGLOBIN A1C TEST 2020-03-13 00:00:00 Kai Rosales [facility] BI SELF-REFERRED SCREENING TOMOSYNTHESIS BILATERAL 2019-12-06 20:01:00 Олег Bravo [facility] VACCINATIONS - CONSENTS, ELIGIBILITY, HISTORY 2019-12-05 05:01:00 Doctor Unassigned, [place] [facility] POCT HEMOGLOBIN A1C TEST 2019-11-02 00:00:00 Kai Rosales [facility] MEDICATION CORRESPONDENCE 2019-10-18 05:01:00 Do ctor Unassigned, [place] [facility] POCT GLUCOSE (AUTOMATED) 2019-06-22 17:57:00 Wilver Guadalupe [facility] POCT GLUCOSE (AUTOMATED) 2019-06-22 13:58:00 Wilver Guadalupe [facility] THYROID STIMULATING HORMONE 2019-06-22 05:29:00 Gilmar Jeffries [facility] COMP. METABOLIC PANEL (72022) 2019-06-22 05:29:00 Viri Roper [facility] SEDIMENTATION RATE 2019-06-22 05:29:00 Bartolo Jeffries [facility] DIFF CONSULT INTERPRETATION 2019-06-22 05:29:00 Gilmar Jeffries [facility] CBC WITH DIFFERENTIAL 2019-06-22 05:29:00 Wilver Roper [facility] LACTIC ACID WHOLE BLOOD 2019-06-22 05:29:00 Gilmar Jeffries [facility] POCT GLUCOSE (AUTOMATED) 2019-06-22 04:16:00 Wilver Guadalupe [facility] CT ABDOMEN PELVIS WO CONTRAST 2019-06-22 03:32:14 Gilmar Jeffries [facility] XR CHEST 1 VW 2019-06-22 00:40:41 Viri Roper [facility] PROTHROMBIN TIME / INR 2019-06-21 23:19:00 Viri oRper [facility] D-DIMER 2019-06-21 23:19:00 Vandana Kaplan [facility] LACTATE DEHYDROGENASE 2019-06-21 23:18:00 Gonzalez Kaplan [facility] BETA HYDROXY-BUTYRATE 2019-06-21 23:18:00 Pancho Jeffries [facility] TROPONIN I 2019-06-21 23:18:00 [facility] LACTIC [facility]ID WHOLE BLO[facility] 2019-06-21 23:18:00 Viri Roper [facility] PROCALCITONIN 2019-06-21 23:18:00 Kesireddy, Viri U [facility] CORONAVIRUS COVID-19 TESTING 2019-06-21 21:23:00 Viri Roper [facility] LACTIC ACID WHOLE BLOOD 2019-06-21 19:03:00 Vandana Kaplan [facility] XR ABDOMEN ACUTE SERIES 2019-06-21 17:23:22 Vandana Kaplan [facility] URINALYSIS 2019-06-21 16:58:00 Vandana Kaplan [facility] URINE CULTURE 2019-06-21 16:58:00 Vandana Kaplan [facility] BLOOD CULTURE SCREEN 2019-06-21 16:25:00 Shreyas Kaplan [facility] CREATINE KINASE 2019-06-21 16:25:00 Jacquelin Viri [facility] FERRITIN SERUM 2019-06-21 16:25:00 Vandana Kaplan [facility] C-REACTIVE PROTEIN 2019-06-21 16:25:00 Carroll Kaplan [facility] TROPONIN I 2019-06-21 16:25:00 Vandana Kaplan [facility] COMP. METABOLIC PANEL (87834) 2019-06-21 16:25:00 Vandana Kaplan [facility] CBC WITH DIFFERENTIAL 2019-06-21 16:25:00 Gonzalez Kaplan [facility] GLYCOSYLATED HEMOGLOBIN (A1C) 2019-06-21 16:25:00 Jacquelin Viri [facility] N-TERMINAL PRO-BNP 2019-06-21 16:25:00 Carroll Kaplan [facility] LACTIC ACID WHOLE BLOOD 2019-06-21 16:24:00 Vandana Kaplan [facility] CORONAVIRUS COVID-19 TESTING 2019-06-21 16:24:00 Vandana Kaplan [facility] POCT GLUCOSE (AUTOMATED) 2019-06-21 16:16:00 Vandana Kaplan [facility] AGREEMENTS AUTHORIZATIONS AND IRREVOCABLE ASSIGNMENTS (FORM 2001) 2019-02-23 06:01:00 Doctor Unassigned, [place] [facility] CT CERVICAL SPINE WO CONTRAST 2018-11-04 01:35:23 Israel Whitney [facility] CT HEAD WO CONTRAST 2018-11-04 01:35:08 Israel Whitney e [facility] NOTICE OF PRIVACY PRACTICES 2018-11-04 00:39:08 Doctor Unassigned, [place] [facility] CONSENT/REFUSAL FOR DIAGNOSIS AND TREATMENT 2018-11-04 00:38:56 Doctor Unassigned, [place] [facility] URINALYSIS 2018-11-01 15:27:00 Jayson Rothman [facility] LIPASE 2018-11-01 14:08:00 Jayson Rothman [facility] COMP. METABOLIC PANEL ([id number]) 2018-11-01 14:08:00 Jayson Rothman [facility] CBC WITH DIFFERENTIAL 2018-11-01 14:08:00 Norris Rothman [facility] NOTICE OF PRIVACY PRACTICES 2018-11-01 13:53:46 Doctor Unassigned, [place] [facility] CONSENT/REFUSAL FOR DIAGNOSIS AND TREATMENT 2018-11-01 13:53:09 Doctor Unassigned, [place] [facility] RAPID STREP SCREEN FOR GROUP A 2018-10-12 01:57:00 Israel Whitney [facility] NOTICE OF PRIVACY PRACTICES 2018-10-12 01:12:30 Doctor Unassigned, [place] [facility] CONSENT/REFUSAL FOR DIAGNOSIS AND TREATMENT 2018-10-12 01:12:09 Doctor Unassigned, [place] [facility] Plan of Care Planned Activity Planned Date Details Comments Source Diagnostic Test Pending 2023-03-24 00:00:00 HbA1c (hemoglobin A1c), blood [code = HbA1c (hemoglobin A1c), blood] [facility] Diagnostic Test Pending 2023-03-24 00:00:00 CMP, serum or plasma [code = CMP, serum or plasma] [facility] Future Appointment 2023-11-05 11:30:00 Evelin Evans, [id number] [facility] [address] [facility]; [address], [place] [address] [facility] En[facility] Start Date/Time End Date/Time Encounter Type Admission Type Attending Clinicians Care Facility Care Department Encounter ID Source 2023-05-22 00:00:00 2023-05-22 00:00:00 Outpatient Barry-Gor_M_ HOU_MD VFP VFP [id number] [facility] 2023-03-24 00:00:00 2023-03-24 00:00:00 Outpatient Barry-Gor_M_ HOU_MD VFP VFP [id number] [facility] 2023-03-24 00:00:00 2023-03-24 00:00:00 Evelin Evans MD: [id number], [address], [place] [address] , Ph. VFP [place] [facility] [place] - VM_DOMONIQUE_Carlos [place] [id number] [facility] 2023-03-22 00:00:00 2023-03-22 00:00:00 Outpatient Barry-Gor_M_ HOU_MD VFP VFP [id number] [facility] 2023-02-21 00:00:00 2023-02-21 00:00:00 Outpatient Barry-Gor_M_ HOU_MD VFP VFP [id number] [facility] 2023-01-21 00:00:00 2023-01-21 00:00:00 Outpatient Barry-Gor_M_ HOU_MD VFP VFP [id number] [facility] 2022-12-13 00:00:00 2022-12-13 00:00:00 Outpatient GC_GCBZW_Ka diyala_S PRIV PRIV [id number] [facility] 2022-11-18 00:00:00 2022-11-18 00:00:00 Outpatient Barry-Gor_M_ HOU_MD VFP VFP [id number] [facility] 2022-11-04 00:00:00 2022-11-04 00:00:00 Outpatient Barry-Gor_M_ HOU_MD VFP VFP [id number] [facility] 2022-11-04 00:00:00 2022-11-04 00:00:00 Evelin Evans MD: [id number], [address], [place] [address] , Ph. VFP [place] - [facility] - [place] - VM_HOU_Shad [place] [id number] [facility] 2022-11-03 00:00:00 2022-11-03 00:00:00 Outpatient Sid KENNY VFP VFP [id number] [facility] 2022-10-06 00:00:00 2022-10-06 00:00:00 Outpatient Sid KENNY VFP VFP [id number] [facility] 2022-01-09 16:46:00 2022-01-09 17:46:00 Emergency X JAYSON ROTHMAN [facility] ERT [id number] [facility] 2022-01-09 16:46:00 2022-01-09 17:46:00 Emergency Tammy Vernon [facility] 1.840.114 350.1.13.10 4.2.7.2.686 [id number] [facility] 2021-12-06 11:11:00 2021-12-06 11:53:00 Emergency YEIMI DAWSON [facility] ERT [id number] [facility] 2021-12-06 11:11:00 2021-12-06 11:53:00 Emergency Yeimi Haji [facility] 1.840.114 350.1.13.10 4.2.7.2.686 [id number] [facility] 2021-06-12 00:00:00 2021-06-12 00:00:00 Refill Maco Rosales [facility] 1.840.114 350.1.13.10 4.2.7.2.686 [id number] [facility] 2021-02-03 00:00:00 2021-02-03 00:00:00 Ce Rosales [facility] 1.2.840.114 350.1.13.10 4.2.7.2.686 [id number] 220 [id number] [facility] 2020-09-30 00:00:00 2020-09-30 00:00:00 Refariella Rosales [facility] 1.2.840.114 350.1.13.10 4.2.7.2.686 [id number] 220 [id number] [facility] 2020-09-11 09:00:00 2020-09-11 09:00:00 Outpatient R DANIAL [facility] [id number] [facility] 2020-07-05 00:00:00 2020-07-05 00:00:00 Refariella Rosales [facility] 1.2.840.114 350.1.13.10 4.2.7.2.686 [id number] [facility] 2020-05-24 00:00:00 2020-05-24 00:00:00 Ce Rosales [facility] 1.2.840.114 350.1.13.10 4.2.7.2.686 [id number] 220 [id number] [facility] 2020-04-13 10:10:00 2020-04-13 10:10:00 Outpatient R TITI PARKER [facility] [id number] [facility] 2020-04-12 00:00:00 2020-04-12 00:00:00 Orders Only Doctor Unassigned, [place] [facility] 1.2.840.114 350.1.13.10 4.2.7.2.686 [id number] [id number] [facility] 2020-04-05 10:00:00 2020-04-05 10:00:00 Outpatient TITI ATNG [facility] [id number] [facility] 2020-03-29 00:00:00 2020-03-29 00:00:00 Patient Secure Msanna Rosales [facility] 1.2840.114 350.1.13.10 4.2.7.2.686 [id number] 220 [id number] [facility] 2020-03-22 00:00:00 2020-03-22 00:00:00 Patient Secure Msg Rosales [facility] 1.2840.114 350.1.13.10 4.2.7.2.686 [id number] 220 [id number] [facility] 2020-03-13 15:54:55 2020-03-13 16:09:55 Jury Consultant Visit 2, Adc Lab Danial [facility] 1.2840.114 350.1.13.10 4.2.7.2.686 [id number] [facility] 2020-03-13 14:01:58 2020-03-13 14:45:09 Office Visit Danial [facility] 1.2840.114 350.1.13.10 4.2.7.2.686 [id number] 220 [id number] [facility] 2020-03-13 14:00:00 2020-03-13 14:00:00 Outpatient R DANIAL [facility] [id number] [facility] 2020-03-13 00:00:00 2020-03-13 00:00:00 Orders Only Doctor Unassigned, [place] [facility] 1.2840.114 350.1.13.10 4.2.7.2.686 [id number] [id number] [facility] 2020-03-06 09:30:00 2020-03-06 09:30:00 Outpatient R DNAIAL [facility] [id number] [facility] 2020-02-22 00:00:00 2020-02-22 00:00:00 Patient Secure Msg Rosales [facility] 1.114 350.1.13.10 4.2.7.2.686 [id number] [facility] 2019-12-06 14:17:16 2019-12-06 23:59:00 Hospital Encounter Nick johnson Олег Lee [facility] 1.114 350.1.13.10 4.2.7.2.686 [id number] [facility] 2019-12-06 00:00:00 2019-12-06 00:00:00 Outpatient R NICK Johnson ОЛЕГ [facility] [id number] [facility] 2019-12-05 00:00:00 2019-12-05 00:00:00 Orders Only Doctor Unassigned, [place] [facility] 1.114 350.1.13.10 4.2.7.2.686 [id number] [id number] [facility] 2019-11-29 00:00:00 2019-11-29 00:00:00 Patient Secure Msg Rosales [facility] 1.114 350.1.13.10 4.2.7.2.686 [id number] 220 [id number] [facility] 2019-11-17 15:34:18 2019-11-17 15:54:18 Laboratory Only Lab, Adc Fam Pob Sandra Casillas [facility] 1.114 350.1.13.10 4.2.7.2.686 [id number] [facility] 2019-11-17 15:40:00 2019-11-17 15:40:00 Outpatient R [facility] [id number] [facility] 2019-11-17 00:00:00 2019-11-17 00:00:00 Letter (Out) Pcp, Patient Does Not Have A [facility] 1.840.114 350.1.13.10 4.2.7.2.686 [id number] [facility] 2019-11-02 09:06:11 2019-11-02 09:53:31 Office Visit Danial [facility] 1.84.114 350.1.13.10 4.2.7.2.686 [id number] [facility] 2019-11-02 09:30:00 2019-11-02 09:30:00 Outpatient R DANIAL [facility] [id number] [facility] 2019-10-20 00:00:00 2019-10-20 00:00:00 Patient Secure Msg Danial [facility] 1.84.114 350.1.13.10 4.2.7.2.686 [id number] 220 [id number] [facility] 2019-10-18 00:00:00 2019-10-18 00:00:00 Orders Only Doctor Unassigned, [place] [facility] 1.84.114 350.1.13.10 4.2.7.2.686 [id number] [facility] 2019-10-10 00:00:00 2019-10-10 00:00:00 Refill Danial [facility] 1.84.114 350.1.13.10 4.2.7.2.686 [id number] [facility] 2019-10-10 00:00:00 2019-10-10 00:00:00 Refill Danial [facility] 1.2.840.114 350.1.13.10 4.2.7.2.686 [id number] [facility] 2019-06-29 07:59:02 2019-06-29 13:56:26 Telemedici ne Visit Danial [facility] 1.2.840.114 350.1.13.10 4.2.7.2.686 [id number] [facility] 2019-06-29 11:00:00 2019-06-29 11:00:00 Outpatient R DANIAL [facility] [id number] [facility] 2019-06-23 00:00:00 2019-06-23 00:00:00 Transition of Care [address] 1.2.840.114 350.1.13.10 4.2.7.2.686 [id number] [facility] 2019-06-21 11:12:28 2019-06-22 16:49:00 Hospital Encounter Vandana Kaplan, Michelle Bojorquez [facility] 1.2.840.114 350.1.13.10 4.2.7.2.686 [id number] [facility] 2019-06-21 11:12:28 2019-06-22 16:49:00 Inpatient X MICHELLE GUADALUPE [facility] [id number] [facility] 2019-06-22 00:00:00 2019-06-22 00:00:00 Telephone Danial [facility] 1.2.840.114 350.1.13.10 4.2.7.2.686 [id number] 220 [id number] [facility] 2019-05-31 00:00:00 2019-05-31 00:00:00 Telephone Danial [facility] 1.2.840.114 350.1.13.10 4.2.7.2.686 [id number] 220 [id number] [facility] 2019-04-18 00:00:00 2019-04-18 00:00:00 Telephone Danial [facility] 1.2.840.114 350.1.13.10 4.2.7.2.686 [id number] 220 [id number] [facility] 2019-03-24 00:00:00 2019-03-24 00:00:00 Refill Danial [facility] 1.2.840.114 350.1.13.10 4.2.7.2.686 [id number] 220 [id number] [facility] 2019-03-20 00:00:00 2019-03-20 00:00:00 Refill Danial [facility] 1.2.840.114 350.1.13.10 4.2.7.2.686 [id number] 220 [id number] [facility] 2019-03-13 00:00:00 2019-03-13 00:00:00 Refill Danial [facility] 1.2.840.114 350.1.13.10 4.2.7.2.686 [id number] 220 [id number] [facility] 2019-02-23 00:00:00 2019-02-23 00:00:00 Orders Only Doctor Unassigned, [place] [facility] 1.2.840.114 350.1.13.10 4.2.7.2.686 [id number] [facility] 2018-11-03 19:42:35 2018-11-03 21:21:00 Emergency Israel Whitney [facility] 1.2.840.114 350.1.13.10 4.2.7.2.686 [id number] [facility] 2018-11-01 09:11:00 2018-11-01 12:06:00 Emergency Jayson Rothman [facility] 1.2.840.114 350.1.13.10 4.2.7.2.686 [id number] [facility] 2018-11-01 00:00:00 2018-11-01 00:00:00 Orders Only Doctor Unassigned, [place] [facility] 1.2.840.114 350.1.13.10 4.2.7.2.686 [id number] [id number] [facility] 2018-10-11 20:23:10 2018-10-11 21:53:00 Emergency Israel Whitney [facility] 1.2.840.114 350.1.13.10 4.2.7.2.686 [id number] [facility] 2018-10-01 00:00:00 2018-10-01 00:00:00 Telephone Maco Rosales [facility] 1.2.840.114 350.1.13.10 4.2.7.2.686 [id number] [facility] 2018-09-20 00:00:00 2018-09-20 00:00:00 Telephone Maco Rosales [facility] 1.2.840.114 350.1.13.10 4.2.7.2.686 [id number] [facility] Results Test Description Test Time Test Comments Results Result Co mments Source [facility]Hemoglobin.total in [id number] 00:00:00* Test Item Value Reference Range Interpretation Comme nts Hemoglobin A1c/Hemoglobin.to pietro in Blood (test code = 4548-4) 6.3 % 1.0-5.7 H average blood glucose (calcu lation) (test code = average blood glucose (calculation)) 134 mg/dL [facility]Creatinine [Mass Ratio] in [id number] 00:00:00* Test Item Value Reference Range Interpretation Comme [facility] creatinine random urine (test code = creatinine random urine) 42.4 mg/dL 20.0-320.0 microalbumin random urine (test code = microalbumin random urine) result IS <5 ug/mL. result IS less than the sensitivity of the instrument. microalbumin/creatinine (random urine) ratio calculated (test code = microalbumin/creatinine (random urine) ratio calculated) [facility] to [id number] 13:05:00* Test Item Value Reference Range Interpretation Comme nts CBC referred to [facility] (test code = CBC referred to [facility]) *ih* CBC referred to [facility]. [facility] 1999 panel - Serum or Plasma 2022-11-05 00:00:00* Test Item Value Reference Range Interpretation Comme [facility] glucose (test code = glucose) 86 mg/dL 70-99 creatinine (test code = creatinine) 0.80 mg/dL 0.57-1.11 BUN (test code = BUN) 8.0 mg/dL 9.8-25.0 L eGFR (test code = eGFR) >60 sodium (test code = sodium) 142 mEq/L 135-145 potassium (test code = potassium) 3.8 mEq/L 3.5-5.3 CO2 (test code = CO2) 28.4 mmol/L 20.0-32.0 chloride (test code = chloride) 105 mmol/L 98-110 anion gap (test code = anion gap) 9 calc calcium (test code = calcium) 9.4 mg/dL 8.4-10.4 total protein (test code = t otal protein) 7.2 g/dL 6.1-8.2 albumin (test code = albumin) 4.3 g/dL 3.4-5.1 total bilirubin (test code = total bilirubin) 0.7 mg/dL 0.2-1.2 alk phos (test code = alk phos) 63 unit/L 40-150 ALT (test code = ALT) 14 U/L 0-55 AST (test code = AST) 15 U/L 5-34 [facility] 1996 panel - Serum or [id number] 00:00:00* Test Item Value Reference Range Interpretation Comme [facility] triglyceride (test code = triglyceride) 138 mg/dL <150 cholesterol (test code = cholesterol) 219 mg/dL <200 H HDL (test code = HDL) 55 mg/dL VLDL (calculated) (test code = VLDL (calculated)) 28 mg/dL cholesterol/HDL ratio (test code = cholesterol/HDL ratio) 4.0 mg/dL Cholesterol in LDL [Mass/vol ume] in Serum or Plasma (test code = 2089-1) 136 mg/dL <130 H non-HDL cholesterol (calcula eric) (test code = non-HDL cholesterol (calculated)) 164 mg/dL <160 H [facility] HospitalThyrotropin [Units/volume] in Serum or [id number] 00:00:00* Test Item Value Reference Range Interpretation Comme [facility] TSH (test code = TSH) 1.302 uIU/mL 0.350-4.940 [facility] HospitalZwdmatwf77-Gszljhrherpoxa D3+25-Hydroxyvitamin D2 [Mass/volume] in Serum or [id number] 00:00:00* Test Item Value Reference Range Interpretation Comme [facility] vitamin D 25OH (test code = vitamin D 25OH) 35.1 NG/mL 30.0-96.0 [facility] HEMOGLOBIN A1C [id number] 20:14:00* Test Item Value Reference Range Interpretation Comme [facility] POCT HBA1C (test code = 4548-4) 6.2 % 4-6 A Lab Interpretation (test cod e = 15822-8) Abnormal [facility] HEMOGLOBIN A1C [id number] 20:14:00* Test Item Value Reference Range Interpretation Comme [facility] POCT HBA1C (test code = 4548-4) 6.2 % 4-6 A Lab Interpretation (test cod e = 72318-5) Abnormal [facility] SELF-REFERRED SCREENING TOMOSYNTHESIS [id number] 20:40:41Examination:BI SELF-REFERRED SCREENING TOMOSYNTHESIS BILATERAL History:Patient is 64 year old and is seen for: ?Routine. Computer- aided detection (CAD) utilized. Comparisons: 01/20/2018 BI SCREENING T OMOSYNTHESIS BILATERAL, 12/08/2016 SCREENING DIGITAL BREAST JENNI, and 11/28/2015 DIGITAL MAMMOGRAM,SCREENING Findings:The breasts are heterogeneously dense, which may obscure small masses. There is no evidence of suspicious masses, calcifications, or other abnormal findings. Impression:No mammographic evidence of malignancy. Recommendation:Annual mammographic follow-up BI-RADS Category: Both [facility] TEST 2019-11-02 14:25:00* Test Item Value Reference Range Interpretation Comme [facility] POCT HBA1C (test code = 4548-4) 7.7 % 4-6 A Lab Interpretation (test cod e = 01849-8) Abnormal [facility] HEMOGLOBIN A1C [id number] 14:25:00* Test Item Value Reference Range Interpretation Comme [facility] POCT HBA1C (test code = 4548-4) 7.7 % 4-6 A Lab Interpretation (test cod e = 04733-5) Abnormal [facility] GLUCOSE (AUTOMATED)2019-06-22 18:12:00* Test Item Value Reference Range Interpretation Comme [facility] POCT GLU (test code = 5803594362) 174 mg/dL 70-110 H Lab Interpretation (test cod e = 97850-2) [facility]normal [facility] [id number] 15:55:00* Test Item Value Reference Range Interpretation Comme [facility] CRP (test code = 7457070022) 1.2 mg/dL <0.8 H Lab Interpretation (test cod e = 41364-1) Abnormal [facility]FF CON[facility]ULT [id number] 14:50:00 Red blood cells are normocytic and normochromic but decreased in number. No increased spherocytes or schistocytes. Polychromasia is appropriate. Neutrophils appear normal morphologically without dysplastic changes or other abnormalities. Lymphocytes are small and mature. Platelets are slightly decre ased with normal platelets. Normocytic anemia, ?anemia of chronic disease. [facility] GLUCOSE (AUTOMATED)2019-06-22 14:02:00* Test Item Value Reference Range Interpretation Comme [facility] POCT GLU (test code = 1347308457) 151 mg/dL 70-110 H Lab Interpretation (test cod e = 10907-0) Abnormal [facility] STIMULATING [id number] 10:22:00 * Test Item Value Reference Range Interpretation Comme nts TSH (test code = 2068524738) See_Comment Biotin has been reported to cause a negative bias, interpret results relative to patient's use of biotin. [Automated message] The system which generated this result transmitted reference range: 0.45 - 4.70 mIU/L. The reference range was not used to interpret this result as normal/abnormal. Lab Interpretation (test code = 08090-3) Normal [facility]hamSEDIMENTATION [id number] 06:19:00* Test Item Value Reference Range Interpretation Comme nts ESR (test code = 5198666922) See_Comment H [Automated messa ge] The system which generated this result transmitted reference range: 0 - 20 mm/HR. The reference range was not used to interpret this result as normal/abnormal. Lab Interpretation (test code = 21162-3) Abnormal [facility]. METABOLIC PANEL (84835)2019-06-22 06:04:00* Test Item Value Reference Range Interpretation Comme nts NA (test code = 8797242636) 137 mmol/L 135-145 K (test code = 6189669630) 4.2 mmol/L 3.5-5 CL (test code = 6638705183) 105 mmol/L 98-108 CO2 TOTAL (test code = 6321877088) 23 mmol/L 23-31 AGAP (test code = 1515522216) 2-16 BUN (test code = 9088639553) 14 mg/dL 7-23 GLUCOSE (test code = 6082822770) 182 mg/dL 70-110 H CREATININE (test code = 0151428721) 0.68 mg/dL 0.5-1.04 TOTAL BILI (test code = 8885202689) 1.0 mg/dL 0.1-1.1 CALCIUM (test code = 2525057941) 8.5 mg/dL 8.6-10.6 L T PROTEIN (test code = 6112727661) 6.9 g/dL 6.3-8.2 ALBUMIN (test code = 6792737142) 3.9 g/dL 3.5-5 ALK PHOS (test code = 1558698117) 55 U/L 34-122 ALTv (test code = 1742-6) 25 U/L 5-35 AST(SGOT) (test code = 9233097083) 40 U/L 13-40 eGFR Calculation (Non-) (test code = 1293129105) mL/min/1.73m2 eGFR Calculation () (test code = 8075265892) mL/min/1.73m2 TONNY (test code = TONNY) Association of Glomerular Filtration Rate (GFR) and Staging of Kidney Disease* + --+ --+ ------+| GFR (mL/min/1.73 m2) ?| With Kidney Damage ?| ?Without Kidney Damage+ --------+ --------+ +| ?>90 ?| ?Stage one ?| ? Normal ?+ ---+ ---+ -------+| ?60-89 ?| ?Stage two ?| ? Decreased GFR ? + --+ --+ ------+| ?30-59 ?| ?Stage three ?| ? Stage three ? + --+ --+ ------+| ?15-29 ?| ?Stage four ? | ? Stage four ?+ ---+ ---+ -------+| ?<15 (or dialysis) ? ?| ?Stage five ? | ? Stage five ?+ ---+ ---+ -------+ *Each stage assumes the associated GFR level has been in effect for at least three months. ?Stages 1 to 5, with or without kidney disease, indicate chronic kidney disease. Notes: Determination of stages one and two (with eGFR >59mL/min/1.73 m2) requires estimation of kidney damage for at least three months as defined by structural or functional abnormalities of the kidney, manifested by either:Pathological abnormalities or Markers of kidney damage (including abnormalities in the composition of the blood or urine or abnormalities in imaging tests). Lab Interpretation (test code = 77088-8) Abnormal [facility] Whole [id number] 05:41:00* Test Item Value Reference Range Interpretation Comme nts LACTIC ACID (test code = 8816768536) 2.02 mmol/L 0.5-2.2 Lab Interpretation (test cod e = 77995-8) [facility] WITH [id number] 05:37:00* Test Item Value Reference Range Interpretation Comme nts WBC (test code = 6690-2) See_Comment [Automated messa ge] The system which generated this result transmitted reference range: 4.30 - 11.10 10*3/?L. The reference range was not used to interpret this result as normal/abnormal. RBC (test code = 789-8) See_Comment L [Automated messa ge] The system which generated this result transmitted reference range: 3.93 - 5.25 10*6/?L. The reference range was not used to interpret this result as normal/abnormal. HGB (test code = 718-7) 11.2 g/dL 11.6-15 L HCT (test code = 4544-3) 34.7 % 35.7-45.2 L MCV (test code = 787-2) 90.4 fL 80.6-95.5 MCH (test code = 785-6) 29.2 pg 25.9-32.8 MCHC (test code = 786-4) 32.3 g/dL 31.6-35.1 RDW-SD (test code = 22152-5) 44.7 fL 39-49.9 RDW-CV (test code = 788-0) 13.6 % 12-15.5 PLT (test code = 777-3) See_Comment L [Automated messa ge] The system which generated this result transmitted reference range: 166 - 358 10*3/?L. The reference range was not used to interpret this result as normal/abnormal. MPV (test code = 88748-9) 11.4 fL 9.5-12.9 NRBC/100 WBC (test code = 2482568833) See_Comment [Automated Envia Lá ssage] The system which generated this result transmitted reference range: 0.0 - 10.0 /100 WBCs. The reference range was not used to interpret this result as normal/abnormal. NRBC x10^3 (test code = 7943349505) <0.01 See_Comment [Automated messa ge] The system which generated this result transmitted reference range: 10*3/?L. The reference range was not used to interpret this result as normal/abnormal. GRAN MAT (NEUT) % (test code = 770-8) 86.7 % IMM GRAN % (test code = 4388396716) 0.20 % LYMPH % (test code = 736-9) 6.5 % MONO % (test code = 5905-5) 6.1 % EOS % (test code = 713-8) 0.2 % BASO % (test code = 706-2) 0.3 % GRAN MAT x10^3(ANC) (test code = 3399183374) 7.50 10*3/uL 1.88-7.09 H IMM GRAN x10^3 (test code = 1905512818) <0.03 0-0.06 LYMPH x10^3 (test code = 731-0) 0.56 10*3/uL 1.32-3.29 L MONO x10^3 (test code = 742-7) 0.53 10*3/uL 0.33-0.92 EOS x10^3 (test code = 711-2) <0.03 0.03-0.39 L BASO x10^3 (test code = 704-7) 0.03 10*3/uL 0.01-0.07 Lab Interpretation (test code = 56184-0) [facility] ABD[facility] PELVIS WO [id number] 04:25:33No acute abdominal or pelvic process. Preliminary Report Dictated by Resident: Marina Aviles ?MD Michael., have reviewed this study and agree with the abovereport.EXAM: CT ABDOMEN/PELVIS WITHOUT CONTRAST HISTORY: ?Sepsis with nausea and vomiting. Please do without contrastSepsis with nauseaand vomiting. Please do without contrast COMPARISON: CT abdomen pelvis 04/21/2018. DOSE: CT abdomen pelvis 04/21/2018 mGycm TECHNIQUE AND FINDINGS: Contiguous axial imaging from the level of the lungbases through the pubic symphysis was performed without the intravenousadministration of contrast. Coronal and sagittal reconstructions wereobtained. ?Auto mA and/or iterative reconstruction were used to reduceradiation dose. FINDINGS: LOWER THORAX: Mild bilateral lower lobe subsegmental atelectasis. Nocardiomegaly. LIVER: No focal hepatic lesions. ?Normal liver contour. GALLBLADDER AND BILIARY TREE: No biliary ductal dilation. Cholecystectomy. SPLEEN: No splenomegaly. PANCREAS: No ductal dilation or masses. ADRENAL GLANDS: No adrenal nodules. KIDNEYS: No hydronephrosis, stones, or masses. PERITONEUM AND RETROPERITONEUM: No free air or fluid. LYMPH NODES: No lymphadenopathy. GI TRACT: No dilation or wall thickening. PELVIS/BLADDER: Hysterectomy. VESSELS: Abdominal aorta and branch vessels are normal in caliber with mildatherosclerotic calcifications in the distal abdominal aorta and iliacarteries. BONES AND SOFT TISSUES: No suspicious lytic or sclerotic bony lesions.Partially calcified iliolumbar ligaments and transitional lumbosacralanatomy. [facility], Radiant Results Inft User - 06/21/2019 11:26 PM CDTEXAM: CT ABDOMEN/PELVIS WITHOUT CONTRASTHISTORY: Sepsis with nausea and vomiting. [place] without contrastSepsis with nausea and vomiting. Please do without contrast COMPARISON: CT abdomen pelvis 04/21/2018.DOSE: CT abdomen pelvis 04/21/2018 mGycmTECHNIQUE AND FINDINGS: Contiguous axial imaging from the level of the lungbases through the pubic symphysis was performed without the intraveno usadministration of contrast. Coronal and sagittal reconstructions wereobtained. Auto mA and/or iterative reconstruction were used to reduceradiation dose.FINDINGS:LOWER THORAX: Mild bilateral lower lobe subsegmental atelectasis. Nocardiomegaly.LIVER: No focal hepatic lesions. Normal liver contour.GALLBLADDER AND BILIARY TREE: No biliary ductal dilation. Cholecystectomy.SPLEEN: No splenomegaly.PANCREAS: No ductal dilation or masses.ADRENAL GLANDS: No adrenal nodules.KIDNEYS: No hydronephrosis, stones, or masses.PERITONEUM AND RETROPERITONEUM: No free air or fluid.LYMPH NODES: No lymphadenopathy.GI TRACT: No dilation or wall thickening.PELVIS/BLADDER: Hysterectomy.VESSELS: Abdominal aorta and branch vessels are normal in caliber with mildatherosclerotic calcifications in the distal abdominal aorta and iliacarteries.BONES AND SOFT TISSUES: No suspicious lytic or sclerotic bony lesions.Partially calcified iliolumbar ligaments and transitional lumbosacralanatomy.IMPRESSIONNo acute abdominal or pelvic process.Preliminary Report Dictated by Resident: Trevon Norwood, Marina Rodriguez MD., havereviewed this study and agree with the abovereport.[facility] (AUTOMATED)2019-06-22 04:18:00* Test Item Value Reference Range Interpretation Comme nts POCT GLU (test code = 1782855690) 160 mg/dL 70-110 H Lab Interpretation (test cod e = 35986-1) Abnormal [facility]hamBETA [id number] 03:23:00* Test Item Value Reference Range Interpretation Comme nts BOH (test code = 5579647628) 0.1 mmol/L TONNY (test code = TONNY) Normal Ranges: ? ? Nonfasting ? Less than 0.1 mmol/L ? ? Overnight Fast ? ? ? Less than 0.4 mmol/L ? ? Fasting (1-2 weeks) ?6-8 mmol/L Test developed and characteristics determined by [facility] Laboratory Services. [facility]hamXR CHEST 1 [id number] 02:50:56No acute cardiopulmonary process. Preliminary Report Dictated by Resident: Marina Nuñez MD., have reviewed this study and agree with the abovereport.EXAM: XR CHEST 1 VW COMPARISON: None. HISTORY: Fever, r/o infection ? TECHNIQUE: Frontal view of the chest was obtained. FINDINGS: Lungs/pleura: ?The lungs are clear except for left lung base subsegmentalatelectasis. No parenchymal con solidation. No pleural effusion orpneumothorax is identified. Heart/Mediastinum: The cardiac silhouette is normal in size. No acute osseous abnormality. [facility], Radiant Results Inft User - 06/21/2019 9:52 PM CDTEXAM: XR CHEST 1 VWCOMPARISON: None.HISTORY: Fever, r/o infection TECHNIQUE: Frontal view of the chest was obtained.FINDINGS:Lungs/pleura: The lungs are clear except for left lung base subsegmentalatelectasis. No parenchymal consolidation. No pleural effusion orpneumothorax is identified.Heart/Mediastinum: The cardiac silhouette is normal in size. No acute osseous abnormality.IMPRESSIONNo acute cardiopulmonary process.Preliminary Report Dictated by Resident: Marina Ureña MD., have reviewed this study and agree with the abovereport.[facility]hamCORONAVIRUS COVID-19 [id number] 00:41:00* Test Item Value Reference Range Interpretation Comme nts SARS-CoV-2 (test code = 71562-2) Not Detected Not Detected TONNY (test code = TONNY) Cepheid Xpert ?Xpr ess SARS-CoV-2 Assay is a rapid, real-time RT-PCR test intended for the qualitative detection of nucleic acid from the SARS-CoV-2 in nasopharyngeal (PIPE STRAIGHTENER) specimens. It is used under Emergency Use Authorization (EUA) by FDA. A positive result is indicative of the presence of SARS-CoV-2 RNA. ?Clinical correlation with patient history and other diagnostic information is necessary to determine patient infection status. A negative (Not Detected) result does not preclude SARS-CoV-2 infection. A negative result does not rule out the presence of PCR inhibitors in the patient specimen or SARS-CoV-2 virus RNA concentrations below the limit of detection by the assay. Clinical correlation with patient history and other diagnostic information should be used in patient management decisions. Invalid: Please collect a new specimen for repeat patient testing if clinically indicated. Lab Interpretation (test code = 81678-5) Normal [facility]hamGLYCOSYLATED HEMOGLOBIN (A1C)2019-06-22 00:36:00* Test Item Value Reference Range Interpretation Comme nts HGB A1C (test code = 4548-4) 6.9 % 4-6 H Lab Interpretation (test cod e = 75560-5) [facility]normal [facility]hamPROCALCITONIN2020-05-06 00:33:00* Test Item Value Reference Range Interpretation Comme nts Procalcitonin (test code = 1674958519) 14.96 ng/mL <0.07 H TONNY (test code = TONNY) INTERPRETATION OF PROCALCITONIN RESULTS IN ADULTS >= 18 YEARS OF AGE Initiation and discontinuation of antibiotics on patients with suspected or confirmed Lower Respiratory Tract Infection in Adults >= 18 years of age. + +-------- --------+ + -----+|Procalcitonin |Interpretation ?|Antibiotic ? ? |Considerations ? |ng/mL ? | ?|recommendation | ? + +-------- --------+ + -----+| <0.1 ? | Bacterial ? ? ?| Strongly ? ? ?| ? | ?| infection very | discouraged ? | Overruling: ? | ?| unlikely ? ? ? | ? | ? Clinically unstable ? ? ? + +-------- --------+ + ? High risk for adverse ? ? | <0.25 ?| Bacterial ? ? ?| Discouraged ? | ? outcome ? | ?| infection ? ? ?| ? | ? SEE IMPORTANT NOTE ?| ?| unlikely ? ? ? | ? | ? + +-------- --------+ + -----+| >=0.25 ? ? ? | Bacterial ? ? ?| Encouraged ? ?| ? | ?| infection ? ? ?| ? | ? | ?| likely ? | ? | Consider treatment failure ?+ +------- ---------+ -+ if levels does not decrease | >0.5 ? | Bacterial ? ? ?| Strongly ? ? ?| appropriately ? | ?| infection very | encouraged ? ?| ? | ?| likely ? | ? | ? + +-------- --------+ + -----+ Discontinuation of antibiotics in high-acuity patients with suspected or confirmed sepsis in Adults >= 18 years of age. + +-------- --------+ + -----+|Procalcitonin |Interpretation ?|Antibiotic ? ? |Considerations ? |ng/mL ? | ?|recommendation | ? + +-------- --------+ + -----+| <0.25 ?| Bacterial ? ? ?| Strongly ? ? ?| ? | ?| infection very | discouraged ? | Overruling: ? | ?| unlikely ? ? ? | ? | ? Clinically unstable ? ? ? + +-------- --------+ + ? High risk for adverse ? ? | <0.5 or drop | Bacterial ? ? ?| Discouraged ? | ? outcome ? | >80% from ? ?| infection ? ? ?| ? | ? SEE IMPORTANT NOTE ?| highest PCT ?| unlikely ? ? ? | ? | ? | level ?| ?| ? | ? + +-------- --------+ + -----+| >=0.5 ?| Bacterial ? ? ?| Encouraged ? ?| ? | ?| infection ? ? ?| ? | ? | ?| likely ? | ? | Consider treatment failure ?+ +------- ---------+ -+ if levels does not decrease | >1.0 ? | Bacterial ? ? ?| Strongly ? ? ?| appropriately ? | ?| infection very | encouraged ? ?| ? | ?| likely ? | ? | ? + +-------- --------+ + -----+ Percentage of drop of Procalcitonin calculation for Discontinuation of antibiotics in high-acuity patients with suspected or confirmed sepsis in Adults >= 18 years of age. ? Procalcitonin highest{}-Procalcitonin current{}Delta Procalcitonin = x100% ? Procalcitonin current {} IMPORTANT NOTE: Procalcitonin may be elevated without bacterial infection by physiologic stress related to trauma, griffith, chronic dialysis, metastatic cancer, surgery in the past seven days, malaria, some fungal infections, and some forms of vasculitis. The interpretation algorithm may not apply to patients with immunosuppression (equivalent of >10 mg of prednisone daily), HIV with CD4 cell count < 350 cells/mm3, active malignancy on systemic chemotherapy, solid organ transplant or hematopoietic stem cell transplantation, or hospital acquired pneumonia. Additionally, some clinical trials of procalcitonin have excluded patients with shock requiring vasopressor use, acute respiratory failure requiring mechanical ventilation, or those with known lung abscess/empyema. For further information please refer to:[email or web address] Lab Interpretation (test code = 42053-6) Abnormal [facility]hamTROPONIN [id number] 23:59:00* Test Item Value Reference Range Interpretation Comme nts TROPONIN I (test code = 3012529817) 0.019 ng/mL See_Comment [Automated message] The system which generated this result transmitted reference range: <=0.034. The reference range was not used to interpret this result as normal/abnormal. TONNY (test code = TONNY) Equal or Less than 0.034 ng/ml---Normal ?Note: Cardiac troponin begins to rise 3-4 hours after the onset of ischemia. Repeat in 4-6 hours if the sample was drawn within 3-4 hours of the onset of the symptom and found normal. Between 0.035 and 0.120 ng/mL--- Borderline. Questionable myocardial injury or necrosis ? ?Note: Serial measurement may be necessary to confirm or exclude the diagnosis of myocardial injury or necrosis; Clinical correlation (symptoms, EKGs, imaging studies, and others) required; Repeat in 4-6 hours if clinically indicated. ? Equal or Higher than 0.121 ng/mL---Abnormal. Myocardial Injury or Necrosis Likely ? Biotin has been reported to cause a negative bias, interpret results relative to patient's use of biotin. ? Lab Interpretation (test code = 11864-6) Normal [facility]hamLACTATE [id number] 23:45:00* Test Item Value Reference Range Interpretation Comme nts LDH (test code = 1021849733) 595 U/L 300-600 Slight hemolysis Lab Interpretation (test cod e = 15361-9) Normal [facility]hamCREATINE [id number] 23:42:00* Test Item Value Reference Range Interpretation Comme nts CK (test code = 1431334132) 123 U/L 33-194 Slight hemolysis Lab Interpretation (test cod e = 95494-9) Normal [facility] BrenhamD-[id number] 23:32:00* Test Item Value Reference Range Interpretation Comments D-DIMER (test code = 7395161927) See_Comment H [Automated message] The system which generated this result transmitted reference range: <0.50 ?g/mL (FEU). The reference range was not used to interpret this result as normal/abnormal. TONNY (test code = TONNY) This test may be used in conjunction with a clinical pretest probability (PTP) assessment model to exclude venous thromboembolism (VTE) in patients suspected of deep venous thrombosis (DVT) and pulmonary embolism (PE) A D-Dimer value less than 0.50 ?g/ml (FEU) has a negative predicative value of 96 to 100% (95% CI)and 97 to 100% (95% CI) as an aid in the diagnosis of deep vein thrombosis (DVT) and pulmonary embolism when there is low or moderate pretest probability of PE or DVT. D-Dimer values are expressed in initial fibrinogen equivalent units (FEU)" The assay results should be used with other information, including the clinical context, in forming a diagnosis. Lab Interpretation (test code = 56520-3) Abnormal [facility] BrenhamPROTHROMBIN TIME / [id number] 23:32:00* Test Item Value Reference Range Interpretation Comme nts PROTIME PATIENT (test code = 5964-2) See_Comment [Automated [employer] ge] The system which generated this result transmitted reference range: 10.1 - 12.6 Seconds. The reference range was not used to interpret this result as normal/abnormal. INR (test code = 6301-6) Normal INR <1.1; Warfarin Therapeutic range 2.0 to 3.0 or 2.5 to 3.5, depending upon the indications. Lab Interpretation (test code = 68231-9) Normal [facility] BrenhamLactic Acid Whole [id number] 23:26:00* Test Item Value Reference Range Interpretation Comme nts LACTIC ACID (test code = 8114324171) 3.42 mmol/L 0.5-2.2 H Lab Interpretation (test cod e = 79220-5) Abnormal [facility] BrenhamFERRITIN [id number] 21:27:00* Test Item Value Reference Range Interpretation Comme nts FERRITIN (test code = 2475922919) 78.8 ng/mL 11-264 TONNY (test code = TONNY) Biotin has been reported to cause a negative bias, interpret results relative to patient's use of biotin. Lab Interpretation (test code = 02766-0) Normal [facility] BrenhamLactic Acid Whole [id number] 19:10:00* Test Item Value Reference Range Interpretation Comme nts LACTIC ACID (test code = 4646429945) 3.39 mmol/L 0.5-2.2 [facility]hamXR ABDOMEN ACUTE [id number] 18:14:02No acute intrathoracic or intra-abdominal abnormality. Preliminary Report Dictated by Resident: Adiel Le MD., have reviewed this study and agree with the abovereport.PROCEDURE: XR ABDOMEN ACUTE SERIES CLINICAL INDICATION: sob COMPARISON: CT abdomen pelvis 04/21/2018 FINDINGS: The lungs are well-expanded and clear without focal consolidation, pleuraleffusion, or pneumo thorax. No subdiaphragmatic free air. The cardiac silhouette is normal in size. Minimal bowel gas is seen in the abdomen that may be seen with prominentsoft tissue fullness or prominent stool burden and fluid-filled loops ofbowel. The bowel gas pattern is nonobstructive with bowel gas detected inthe distal rectum. No radiopaque stones are identified. Prior cholecystomy. No acute osseous abnormality. Lumbosacral junction spondylosis and facetarthropathy are seen. Degenerative changes are seen inthe bilateral hipjoints. [facility], Radiant Results Inft User - 06/21/2019 1:15 PM CDTPROCEDURE: XR ABDOMEN ACUTE SERIESCLINICAL INDICATION: sob COMPARISON: CT abdomen pelvis 04/21/2018FINDINGS:The lungs are well-expanded and clear without focal consolidation, pleuraleffusion, or pneumothorax. No subdiaphragmatic free air.The cardiac silhouette is normal in size. Minimal bowel gas is seen in the abdomenthat may be seen with prominentsoft tissue fullness or prominent stool burden and fluid-filled loops ofbowel. The bowel gas pattern is nonobstructive with bowel gas detected inthe distal rectum.No radiopaque stones are identified. Prior cholecystomy.No acute osseous abnormality. Lumbosacral junction spondylosis and facetarthropathy are seen. Degenerative changes are seen in the bilateral hipjoints.IMPRESSIONNo acute intrathoracic or intra-abdominal abnormality.Preliminary Report Dictated by Resident: Adiel Anton MD., have reviewed this study and agree with the abovereport.[facility]hamTRCHUN [id number] 18:11:00* Test Item Value Reference Range Interpretation Comme nts TROPONIN I (test code = 3822906919) 0.001 ng/mL See_Comment [Automated message] The system which generated this result transmitted reference range: <=0.034. The reference range was not used to interpret this result as normal/abnormal. TONNY (test code = TONNY) Equal or Less than 0.034 ng/ml---Normal ?Note: Cardiac troponin begins to rise 3-4 hours after the onset of ischemia. Repeat in 4-6 hours if the sample was drawn within 3-4 hours of the onset of the symptom and found normal. Between 0.035 and 0.120 ng/mL--- Borderline. Questionable myocardial injury or necrosis ? ?Note: Serial measurement may be necessary to confirm or exclude the diagnosis of myocardial injury or necrosis; Clinical correlation (symptoms, EKGs, imaging studies, and others) required; Repeat in 4-6 hours if clinically indicated. ? Equal or Higher than 0.121 ng/mL---Abnormal. Myocardial Injury or Necrosis Likely ? Biotin has been reported to cause a negative bias, interpret results relative to patient's use of biotin. ? Lab Interpretation (test code = 80155-1) Normal [facility] BrenhamN-TERMINAL [id number] 18:11:00* Test Item Value Reference Range Interpretation Comme nts NT-proBNP (test code = 8177127109) 27 pg/mL See_Comment [Automated message] The system which generated this result transmitted reference range: <=125. The reference range was not used to interpret this result as normal/abnormal. TONNY (test code = TONNY) Biotin has been reported to cause a negative bias, interpret results relative to patient's use of biotin. Lab Interpretation (test code = 32470-8) Normal [facility] BrenhamCOMP. METABOLIC PANEL (12950)2019-06-21 17:46:00* Test Item Value Reference Range Interpretation Comme nts NA (test code = 0771764947) 141 mmol/L 135-145 K (test code = 1122364469) 4.6 mmol/L 3.5-5 Slight hemolysis CL (test code = 0639141303) 102 mmol/L 98-108 CO2 TOTAL (test code = 6762283020) 19 mmol/L 23-31 L AGAP (test code = 8919647426) 2-16 H BUN (test code = 3631479320) 16 mg/dL 7-23 Slight hemolysis GLUCOSE (test code = 0396638943) 139 mg/dL 70-110 H CREATININE (test code = 9269263884) 0.67 mg/dL 0.5-1.04 TOTAL BILI (test code = 8823975223) 1.1 mg/dL 0.1-1.1 CALCIUM (test code = 1634229777) 10.2 mg/dL 8.6-10.6 T PROTEIN (test code = 8957184381) 9.8 g/dL 6.3-8.2 H ALBUMIN (test code = 2255592110) 5.5 g/dL 3.5-5 H ALK PHOS (test code = 4742018446) 83 U/L 34-122 Slight hemolysis ALTv (test code = 1742-6) 30 U/L 5-35 AST(SGOT) (test code = 3652837452) 48 U/L 13-40 H Slight hemolysis eGFR Calculation (Non-) (test code = 6644042178) mL/min/1.73m2 eGFR Calculation () (test code = 0639848088) mL/min/1.73m2 TONNY (test code = TONNY) Association of Glomerular Filtration Rate (GFR) and Staging of Kidney Disease* + -----+ --------+ +| GFR (mL/min/1.73 m2) ?| With Kidney Damage ?| ?Without Kidney Damage+ +------- +---- --+| ?>90 ?| ?Stage one ?| ? Normal ?+ ------+ ---------+--------- +| ?60-89 ?| ?Stage two ?| ? Decreased GFR ? + -----+ --------+ +| ?30-59 ?| ?Stage three ?| ? Stage three ? + -----+ --------+ +| ?15-29 ?| ?Stage four ? | ? Stage four ?+ ------+ ---------+--------- +| ?<15 (or dialysis) ? ?| ?Stage five ? | ? Stage five ?+ ------+ ---------+--------- + *Each stage assumes the associated GFR level has been in effect for at least three months. ?Stages 1 to 5, with or without kidney disease, indicate chronic kidney disease. Notes: Determination of stages one and two (with eGFR >59mL/min/1.73 m2) requires estimation of kidney damage for at least three months as defined by structural or functional abnormalities of the kidney, manifested by either:Pathological abnormalities or Markers of kidney damage (including abnormalities in the composition of the blood or urine or abnormalities in imaging tests). Lab Interpretation (test code = 65725-5) Abnormal [facility] BrenhamUrinalysis2020-05-05 17:26:00* Test Item Value Reference Range Interpretation Comme nts APPEARANCE (test code = 4867600254) Hazy Clear A COLOR (test code = 9640715647) Yellow Yellow PH (test code = 0917356488) 4.8-8.0 SP GRAVITY (test code = 9666501598) 1.003-1.030 GLU U QUAL (test code = 3831862513) Normal Normal BLOOD (test code = 5670736102) Negative Negative KETONES (test code = 9874216811) 20 mg/dL Negative A PROTEIN (test code = 2887-8) 100 mg/dL Negative A UROBILIN (test code = 1051089364) 2.0 mg/dL Normal A BILIRUBIN (test code = 7074306355) Negative Negative NITRITE (test code = 5640869905) Negative Negative LEUK MARCI (test code = 0457711530) Negative Negative RBC/HPF (test code = 3928307188) See_Comment [Automated [employer]] The system which generated this result transmitted reference range: 0 - 3 HPF. The reference range was not used to interpret this result as normal/abnormal. WBC/HPF (test code = 4413949312) See_Comment [Automated [employer]] The system which generated this result transmitted reference range: 0 - 5 HPF. The reference range was not used to interpret this result as normal/abnormal. BACTERIA (test code = 3343592304) Few Negative A MUCOUS (test code = 5305916220) Slight Negative LPF A SQ EPITH (test code = 9292431313) See_Comment [Automated [employer] ge] The system which generated this result transmitted reference range: <=2 HPF. The reference range was not used to interpret this result as normal/abnormal. HYAL CAST (test code = 3605705175) See_Comment H [Automated [employer] ge] The system which generated this result transmitted reference range: <=2 LPF. The reference range was not used to interpret this result as normal/abnormal. Lab Interpretation (test code = 67067-3) [facility]normal [facility] COVID-19 [id number] 16:49:00* Test Item Value Reference Range Interpretation Comme nts SARS-CoV-2 (test code = 87649-4) Not Detected Not Detected TONNY (test code = TONNY) ID NOW COVID-19 As say is an isothermal nucleic acid amplification test intended for the qualitative detection of nucleic acid from SARS-CoV-2 viral RNA in nasopharyngeal (PIPE STRAIGHTENER) specimens. It is used under Emergency Use Authorization (EUA) by FDA. The limit of detection (LOD) of the assay is 125 Genome Equivalents/mL. A positive result is indicative of the presence of SARS-CoV-2 RNA. ?Clinical correlation with patient history and other diagnostic information is necessary to determine patient infection status. A negative (Not Detected) result does not preclude SARS-CoV-2 infection. Clinical correlation with patient history and other diagnostic information should be used in patient management decisions. Invalid: Please collect a new specimen for repeat patient testing if clinically indicated. Lab Interpretation (test code = 34208-7) Normal [facility] WITH [id number] 16:43:00* Test Item Value Reference Range Interpretation Comme nts WBC (test code = 6690-2) See_Comment L [Automated [employer] ge] The system which generated this result transmitted reference range: 4.30 - 11.10 10*3/?L. The reference range was not used to interpret this result as normal/abnormal. RBC (test code = 789-8) See_Comment [Automated [employer]] The system which generated this result transmitted reference range: 3.93 - 5.25 10*6/?L. The reference range was not used to interpret this result as normal/abnormal. HGB (test code = 718-7) 13.9 g/dL 11.6-15 HCT (test code = 4544-3) 45.5 % 35.7-45.2 H MCV (test code = 787-2) 93.2 fL 80.6-95.5 MCH (test code = 785-6) 28.5 pg 25.9-32.8 MCHC (test code = 786-4) 30.5 g/dL 31.6-35.1 L RDW-SD (test code = 45107-1) 45.8 fL 39-49.9 RDW-CV (test code = 788-0) 13.4 % 12-15.5 PLT (test code = 777-3) See_Comment [Automated messa ge] The system which generated this result transmitted reference range: 166 - 358 10*3/?L. The reference range was not used to interpret this result as normal/abnormal. MPV (test code = 38509-9) 11.1 fL 9.5-12.9 NRBC/100 WBC (test code = 9555802823) See_Comment [Automated [employer]] The system which generated this result transmitted reference range: 0.0 - 10.0 /100 WBCs. The reference range was not used to interpret this result as normal/abnormal. NRBC x10^3 (test code = 6633410659) <0.01 See_Comment [Automated messa ge] The system which generated this result transmitted reference range: 10*3/?L. The reference range was not used to interpret this result as normal/abnormal. GRAN MAT (NEUT) % (test code = 770-8) 68.7 % IMM GRAN % (test code = 3263285907) 0.00 % LYMPH % (test code = 736-9) 29.3 % MONO % (test code = 5905-5) 0.5 % EOS % (test code = 713-8) 1.0 % BASO % (test code = 706-2) 0.5 % GRAN MAT x10^3(ANC) (test code = 6262538460) 2.75 10*3/uL 1.88-7.09 IMM GRAN x10^3 (test code = 4216465661) <0.03 0-0.06 LYMPH x10^3 (test code = 731-0) 1.17 10*3/uL 1.32-3.29 L MONO x10^3 (test code = 742-7) <0.03 0.33-0.92 L EOS x10^3 (test code = 711-2) 0.04 10*3/uL 0.03-0.39 BASO x10^3 (test code = 704-7) <0.03 0.01-0.07 Lab Interpretation (test code = 95717-6) Abnormal [facility]hamLactic Acid Whole [id number] 16:37:00* Test Item Value Reference Range Interpretation Comme nts LACTIC ACID (test code = 0964461852) 7.74 mmol/L 0.5-2.2 [facility] GLUCOSE (AUTOMATED)2019-06-21 16:17:00* Test Item Value Reference Range Interpretation Comme nts POCT GLU (test code = 8276921328) 124 mg/dL 70-110 H Lab Interpretation (test cod e = 03514-2) Abnormal [facility] HEAD WO [id number] 02:09:581. No acute intracranial abnormality. 2. No acute fracture or traumatic malalignment of the cervical spine. I, Gino Perdomo MD., have reviewed this study and agree with theabove report.CT HEADCT CERVICAL SPINE HISTORY: Head trauma, headache COMPARISON: None. TECHNIQUE: Routine CTs of the head and cervical spine were performedwithout intravenous contrast, and coronal and sagittal reformatted imageswere generated. FINDINGS: CT HEAD: No calvarial fracture. No acute intracranial hemorrhage, extra-axial collection, mass effect,midline shift, or herniation. Niño-white differentiation is preserved. Thecerebral volume is appropriate for age. No hydrocephalus. The basalcisterns are patent. The visualized paranasal sinuses and the mastoid air cells are clear. CT CERVICAL SPINE: There is straightening of the normal cervical lordosis. The cervicalvertebral bodies are normal in height and in normal alignment. No acute fracture or subluxation. There are mild multilevel degenerative changes at C4-C6 in the form of discspace narrowing, endplate sclerosis, and osteophytosis. These changes aremost conspicuous at C5-C6. The prevertebral soft tissues and the visualized lung apices areunremarkable. An incidental note is made of elongated styloid processes. [facility], Radiant Results Inft User - 11/03/2018 9:10 PM CDTCT HEADCT CERVICAL SPINE HISTORY: Head trauma, headache COMPARISON: None.TECHNIQUE: Routine CTs of the head and cervical spine were performedwithout intravenous contrast, and coronal and sagittal reformatted imageswere generated. FINDINGS: CT HEAD:No calvarial fracture. No acute intracranial hemorrhage, extra-axial collection, mass effect,midline shift, or herniation. Niño-white differentiation is preserved. Thecerebral volume is appropriate for age. No hydrocephalus. The basalcisterns are patent. The visualized paranasal sinuses and the mastoid air cells are clear. CT CERVICAL SPINE:There is straightening of the normal cervical lordosis. The cervicalvertebral bodies are normal in height and in normal alignment.No acute fracture or subluxation.There are mild multilevel d egenerative changes at C4-C6 in the form of discspace narrowing, endplate sclerosis, and osteophytosis. These changes aremost conspicuous at C5-C6.The prevertebral soft tissues and the visualized lung apices areunremarkable. An incidental note is made of elongated styloid processes.IMPRESSION1. No acute intracranial abnormality.2. No acute fracture or traumatic malalignment of the cervical spine.IGino MD., have reviewed this study and agree with theabove report.[facility] CERV[facility] SPINE WO [id number] 02:09:581. No acute intracranial abnormality. 2. No acute fracture or traumatic malalignment of the cervical spine. I, Gino Perdomo MD., have reviewed this study and agree with theabove report.CT HEADCT CERVICAL SPINE HISTORY: Head trauma, headache COMPARISON: None. TECHNIQUE: Routine CTs of the head and cervical spine were performedwithout intravenous contrast, and coronal and sagittal reformatted imageswere generated. FINDINGS: CT HEAD: No calvarial fracture. No acute intracranial hemorrhage, extra-axial collection, mass effect,midline shift, or herniation. Niño-white differentiation is prese rved. Thecerebral volume is appropriate for age. No hydrocephalus. The basalcisterns are patent. The visualized paranasal sinuses and the mastoid air cells are clear. CT CERVICAL SPINE: There is straightening of the normal cervical lordosis. The cervicalvertebral bodies are normal in height and in n ormal alignment. No acute fracture or subluxation. There are mild multilevel degenerative changes at C4-C6 in the form of discspace narrowing, endplate sclerosis, and osteophytosis. These changes aremost conspicuous at C5-C6. The prevertebral soft tissues and the visualized lung apices areunremarkable. An incidental note is made of elongated styloid processes. [facility], Radiant Results Inft User - 11/03/2018 9:10 PM CDTCT HEADCT CERVICAL SPINE HISTORY: Head trauma, headache COMPARISON: None.TECHNIQUE: Routine CTs of the head and cervical spine were performedwithout intravenous contrast, and coronal and sagittal reformatted imageswere generated. FINDINGS: CT HEAD:No calvarial fracture. No acute i ntracranial hemorrhage, extra-axial collection, mass effect,midline shift, or herniation. Niño-white differentiation is preserved. Thecerebral volume is appropriate for age. No hydrocephalus. The basalcisterns are patent. The visualized paranasal sinuses and the mastoid air cells are clear. CT CERVICAL SPINE:There is straightening of the normal cervical lordosis. The cervicalvertebral bodies are normal in height and in normal alignment.No acute fracture or subluxation.There are mild multilevel degenerative changes at C4-C6 in the form of discspace narrowing, endplate sclerosis, and osteophytosis. These changes aremost conspicuous at C5-C6.The prevertebral soft tissues and the visualized lung apices areunremarkable. An incidental note is made of elongated styloid processes.IMPRESSION1. No acute intracranial abnormality.2. No acute fracture or traumatic malalignment of the cervical spine.I, Gino Perdomo MD., have reviewed this study and agree with theabove report.[facility]hamUrinalysis2019-09-16 16:34:00* Test Item Value Reference Range Interpretation Comme nts APPEARANCE (test code = 9536908741) Hazy Clear A COLOR (test code = 4847887043) Yellow Yellow PH (test code = 6625884959) 4.8-8.0 SP GRAVITY (test code = 7323752184) 1.003-1.030 GLU U QUAL (test code = 5976678843) Normal Normal BLOOD (test code = 1110385271) 1+ Negative A KETONES (test code = 5004987740) 5 mg/dL Negative A PROTEIN (test code = 2887-8) 30 mg/dL Negative A UROBILIN (test code = 6989140655) Normal Normal BILIRUBIN (test code = 9983747662) Negative Negative NITRITE (test code = 4272194230) Negative Negative LEUK MARCI (test code = 5683962382) 25/uL Negative A RBC/HPF (test code = 7537157604) See_Comment H [Automated messa ge] The system which generated this result transmitted reference range: 0 - 3 HPF. The reference range was not used to interpret this result as normal/abnormal. WBC/HPF (test code = 4634131551) See_Comment H [Automated messa ge] The system which generated this result transmitted reference range: 0 - 5 HPF. The reference range was not used to interpret this result as normal/abnormal. BACTERIA (test code = 0108536491) Many Negative A MUCOUS (test code = 5858493633) Moderate Negative LPF A SQ EPITH (test code = 0332983193) HPF Lab Interpretation (test code = 43120-1) Abnormal [facility]hamComplete Metabolic [id number] 15:01:00* Test Item Value Reference Range Interpretation Comme nts NA (test code = 4253101772) 142 mmol/L 135-145 K (test code = 3889161272) 4.2 mmol/L 3.5-5 CL (test code = 7070115703) 104 mmol/L 98-108 CO2 TOTAL (test code = 2461434598) 23 mmol/L 23-31 AGAP (test code = 1323720521) 2-16 BUN (test code = 2253983702) 18 mg/dL 7-23 GLUCOSE (test code = 1368350261) 160 mg/dL 70-110 H CREATININE (test code = 6016597721) 0.61 mg/dL 0.5-1.04 TOTAL BILI (test code = 9124003605) 0.6 mg/dL 0.1-1.1 CALCIUM (test code = 4012648219) 9.6 mg/dL 8.6-10.6 T PROTEIN (test code = 8176106428) 8.5 g/dL 6.3-8.2 H ALBUMIN (test code = 6692349803) 5.0 g/dL 3.5-5 ALK PHOS (test code = 0406710296) 78 U/L 34-122 ALT(SGPT) (test code = 9110490306) 26 U/L 9-51 AST(SGOT) (test code = 6880218337) 28 U/L 13-40 eGFR Calculation (Non-) (test code = 1349701961) mL/min/1.73m2 eGFR Calculation () (test code = 0526824810) mL/min/1.73m2 TONNY (test code = TONNY) Association of Glomerular Filtration Rate (GFR) and Staging of Kidney Disease*+ + + +| GFR (mL/min/1.73 m2)?| With Kidney Damage?|?Without Kidney Damage+ --------+ --------+ +|?>90?|?S tage one?|? Normal?+ ---------+ ---------+ +|?60-89? |?Stage two?|? Decreased GFR? + --+ --+ ------+|?30-59?|?Stage three?|? Stage three? + --+ --+ ------+|?15-29?|?Stage four? |? Stage four?+ -------+ -------+ +|?<15 (or dialysis)?|?Stage five? |? Stage five?+ -------+ -------+ +*Each stage assumes the associated GFR level has been in effect for at least three months.?Stages 1 to 5, with or without kidney disease, indicate chronic kidney disease.Notes: Determination of stages one and two (with eGFR >59mL/min/1.73 m2) requires estimation of kidney damage for at least three months as defined by structural or functional abnormalities of the kidney, manifested by either:Pathological abnormalities or Markers of kidney damage (including abnormalities in the composition of the blood or urine or abnormalities in imaging tests). Lab Interpretation (test code = 30942-6) Abnormal [facility] BrenhamLipase, [id number] 15:01:00* Test Item Value Reference Range Interpretation Comme [facility] LIPASE (test code = 7595524035) 100 U/L 0-220 Lab Interpretation (test cod e = 16276-0) Normal [facility]ham[facility] WITH [id number] 14:47:00* Test Item Value Reference Range Interpretation Comme nts WBC (test code = 6690-2) See_Comment H [Automated message] The system which generated this result transmitted reference range: 4.30 - 11.10 10*3/?L. The reference range was not used to interpret this result as normal/abnormal. RBC (test code = 789-8) See_Comment [Automated message] The system which generated this result transmitted reference range: 3.93 - 5.25 10*6/?L. The reference range was not used to interpret this result as normal/abnormal. HGB (test code = 718-7) 14.5 g/dL 11.6-15 HCT (test code = 4544-3) 43.2 % 35.7-45.2 MCV (test code = 787-2) 89.1 fL 80.6-95.5 MCH (test code = 785-6) 29.9 pg 25.9-32.8 MCHC (test code = 786-4) 33.6 g/dL 31.6-35.1 RDW-SD (test code = 54110-4) 41.1 fL 39-49.9 RDW-CV (test code = 788-0) 12.9 % 12-15.5 PLT (test code = 777-3) See_Comment [Automated message] The system which generated this result transmitted reference range: 166 - 358 10*3/?L. The reference range was not used to interpret this result as normal/abnormal. MPV (test code = 03186-3) 11.4 fL 9.5-12.9 NRBC/100 WBC (test code = 0913453265) See_Comment [Automated message] The system which generated this result transmitted reference range: 0.0 - 10.0 /100 WBCs. The reference range was not used to interpret this result as normal/abnormal. NRBC x10^3 (test code = 6935031971) <0.01 See_Comment [Automated message] The system which generated this result transmitted reference range: 10*3/?L. The reference range was not used to interpret this result as normal/abnormal. GRAN MAT (NEUT) % (test code = 770-8) 83.9 % IMM GRAN % (test code = 2262833409) 0.40 % LYMPH % (test code = 736-9) 8.8 % MONO % (test code = 5905-5) 6.2 % EOS % (test code = 713-8) 0.5 % BASO % (test code = 706-2) 0.2 % GRAN MAT x10^3(ANC) (test code = 0605950669) 11.20 10*3/uL 1.88-7.09 H IMM GRAN x10^3 (test code = 1916184603) 0.05 10*3/uL 0-0.06 LYMPH x10^3 (test code = 731-0) 1.17 10*3/uL 1.32-3.29 L MONO x10^3 (test code = 742-7) 0.83 10*3/uL 0.33-0.92 EOS x10^3 (test code = 711-2) 0.07 10*3/uL 0.03-0.39 BASO x10^3 (test code = 704-7) 0.03 10*3/uL 0.01-0.07 Lab Interpretation (test code = 63960-7) Abnormal [facility] BrenhamRAPID STREP SCREEN FOR GROUP [id number] 02:26:00* Test Item Value Reference Range Interpretation Comme nts Streptococcus pyogenes (grou p A) antigen (test code = 58882-8) Negative Negative Lab Interpretation (test cod e = 90968-0) Normal [facility]
[2023-06-23] MEDS ORDERED: KETOROLAC 30 MG/ML INJ ONE (06:59)
[2023-06-23] MEDS ORDERED: MORPHINE 4 MG/ML SYR ONE (06:59)
[2023-06-23] MEDS ORDERED: DIPHENHYDRAMINE 50 MG/ML VIAL ONE (06:59)
[2023-06-23] MEDS ORDERED: ONDANSETRON 4 MG/2 ML VIAL ONE (06:59)
[2023-06-23] MEDS ORDERED: MAGNES/ALUMIN/SIMET 30ML UCUP ONE (06:59)
[2023-06-23] MEDS ORDERED: NA CHLORIDE 0.9% 1,000 ML ONE (07:00)
[2023-06-23] MEDS ORDERED: LIDOCAINE VISCOUS 2% 10ML ORAL SOLN ONE (07:00)
[2023-06-23 07:23] LABS: Absolute Eosinophils 0.1 K/uL (0-0.5); Absolute Lymphocytes (CBC) 1.7 K/uL (0.7-4.9); Absolute Monocytes 0.3 K/uL (0.1-1.3); Absolute Neutrophil 3.3 K/uL (1.8-8.0); Basophils % 0.8 % (0-1.3); Eosinophils % 1.9 % (0-4.4); Hematocrit 37.8 % (36.0-45.0); Hemoglobin 12.5 g/dL (12.0-15.0); Lymphocytes % 31.4 % (15.3-44.8); MCH 30.2 pg (27.0-35.0); MCHC 33.2 g/dL (32.0-36.0); MCV 91.1 fL (80-100); MPV 9.9 fL (7.6-11.3); Monocytes % 6.1 % (3.3-12.3); Neutrophils % 59.8 % (41.7-73.7); Platelets 184 thou/uL (152-406); RBC Red Blood Cell Count 4.15 M/uL (3.86-4.86)
--- NOTE | 2023-06-23 07:34 | RAD REPORT ---
EXAM DESCRIPTION: RAD - Chest Single View - 06/23/2023 7:23 am CLINICAL HISTORY: CHEST PAIN Chest pain. COMPARISON: CHEST SINGLE VIEW dated 01/17/2014; CHEST PA AND LAT 2 VIEW dated 07/15/2011 FINDINGS: Portable technique limits examination quality. The lungs are grossly clear. The heart is upper limit of normal in size. No displaced fractures. IMPRESSION: No acute intrathoracic process suspected.
[2023-06-23 07:40] LABS: Albumin 3.8 g/dL (3.4-5.0); Albumin/Globulin Ratio 1.1 (1.1-1.8); Anion Gap 6.7 mEq/L (5.0-15.0); Bilirubin Direct 0.1 mg/dL (0-0.2); Bilirubin Indirect, Calculated 0.4 mg/dL (0.2-0.8); Bilirubin Total 0.5 mg/dL (0.2-1.0); Globulin 3.5 g/dL (2.3-3.5); Magnesium 1.8 mg/dL (1.6-2.4); Potassium 3.7 mEq/L (3.5-5.1); Protein, Total 7.3 g/dL (6.4-8.2); Troponin High Sensitivity 7.8 pg/mL (<58.9)
[2023-06-23 08:03] LABS: PT Prothrombin Time 11.2 SECONDS (9.5-12.5); Protime INR 1.02
--- NOTE | 2023-06-23 08:11 | RAD REPORT ---
EXAM DESCRIPTION: CT - Chest Abdomen Pelvis W Cont - 06/23/2023 8:03 am CLINICAL HISTORY: Chest and abdomen pain. CHEST PAIN COMPARISON: No comparisons TECHNIQUE: Approximately 100 mL nonionic IV contrast was administered to the patient. All CT scans are performed using dose optimization technique as appropriate and may include automated exposure control or mA/KV adjustment according to patient size. FINDINGS: The lungs are clear.Cholecystectomy clips.No pleural or pericardial effusion.No intrathora cic adenopathy. The liver demonstrates mild fatty infiltration. The spleen, pancreas, adrenal glands and kidneys are within normal limits. No bowel obstruction, free air, free fluid or abscess. Nonvisualized appendix. No pathologic lymphad enopathy in the abdomen or pelvis. No acute bony lesion. Mild lower lumbar spondylosis. IMPRESSION: Negative for acute finding.
--- NOTE | 2023-06-23 08:25 | EDPHYS ---
Physician Documentation [facility] Name: Cassia Pinon Age: 68 yrs Sex: Female : 1955 Arrival Date: 06/23/2023 Time: 06:39 Bed 6 Private MD: ED Physician Lucian Keyes HPI: 06/22 06:53 This 68 yrs old Female presents to ER via Unassigned with complaints of chest sp4 pain , abdominal pain. 06:56 68-year-old female presents with acute onset of epigastric pain abdominal pain chest sp4 pain. . Historical: - Allergies: 06:56 No Known Allergies; vc1 - Home Meds: 06:56 None [Active]; vc1 - PMHx: 06:56 None; vc1 - PSHx: 06:56 None; vc1 - Immunization history:: Adult Immunizations unknown. - Infectious Disease History:: Denies. - Social history:: Smoking status: Patient denies any tobacco usage or history of. - Family history:: not pertinent. ROS: 06:56 Constitutional: Negative for fever, chills, and weight loss, positive chest pain , sp4 positive epigastric pain , positive abdominal 06:56 All other systems are negative, Exam: 06:56 Constitutional: This is a well developed, well nourished patient who is awake, alert, sp4 and in no acute distress. Head/Face: Normocephalic, atraumatic. Eyes: Pupils equal round and reactive to light, extra-ocular motions intact. Lids and lashes normal. Conjunctiva and sclera are not injected. Cornea within normal limits. Periorbital areas with no swelling, redness, or edema. ENT: Nares patent. No nasal discharge, no septal abnormalities noted. Tympanic membranes are normal and external auditory canals are clear. Oropharynx with no redness, swelling, or masses, exudates, or evidence of obstruction, uvula midline. Mucous membranes moist. Neck: Trachea midline, no thyromegaly or masses palpated, and no cervical lymphadenopathy. Supple, full range of motion without nuchal rigidity, or vertebral point tenderness. Chest/axilla: Normal chest wall appearance and motion. Nontender with no deformity. No lesions are appreciated. Cardiovascular: Regular rate and rhythm with a normal S1 and S2. No gallops, murmurs, or rubs. Normal PMI, no JVD. No pulse deficits. Respiratory: Lungs have equal breath sounds bilaterally, clear to auscultation and percussion. No rales, rhonchi or wheezes noted. No increased work of breathing, no retractions or nasal flaring. Abdomen/GI: Soft, with normal bowel sounds. No distension or tympany. No guarding or rebound. No evidence of tenderness throughout. Back: No spinal tenderness. No costovertebral tenderness. Skin: Warm, dry with normal turgor. Normal color with no rashes, no lesions, and no evidence of cellulitis. MS/ Extremity: Pulses equal, no cyanosis. Neurovascular intact. Full, normal range of motion. Neuro: Awake and alert, GCS 15, oriented to person, place, time, and situation. Cranial nerves II-XII grossly intact. Motor strength 5/5 in all extremities. Sensory grossly intact. Psych: Awake, alert, with orientation to person, place and time. Behavior, mood, and affect are within normal limits 06:56 ECG was reviewed by the Attending Physician. EKG at 0 654 sinus rhythm at the rate of 64 otherwise normal Vital Signs: 06:53 BP 163 / 83; Pulse 70; Resp 18; Temp 97.4; Pulse Ox 100% ; Weight 75.75 kg; Height 5 vc1 ft. 4 in. ; Pain 9/10; 07:00 BP 183 / 103; Pulse 85; Resp 15; Pulse Ox 96% ; rs5 08:30 BP 134 / 71; Pulse 63; Resp 16; Pulse Ox 96% on R/A; db 06:53 Body Mass Index 28.67 (75.75 kg, 162.56 cm) vc1 06:53 Pain Scale: Adult vc1 Katie Coma Score: 06:56 Eye Response: spontaneous(4). Motor Response: obeys commands(6). Verbal Response: sp4 oriented(5). Total: 15. MDM: 07:00 Patient medically screened. ec2 07:02 Data reviewed: vital signs. ED course: Patient signed out to me by. Physician, in brief ec2 patient arrives today for epigastric pain rating to the chest. Plans to follow-up lab work and imaging and reassess the patient. Consider process such as ACS, pancreatitis, gastritis.. 07:11 ED course: EKG independently reviewed and interpreted by me, shows normal sinus rhythm, ec2 rate of 64, no acute ST segment elevations, intervals nonconcerning.. 07:57 ED course: Metabolic profile generally reassuring, LFTs unremarkable, CBC reassuring, ec2 troponin within normal ranges. Chest x-ray with no acute intrathoracic process. Pending CT imaging. . 08:21 ED course: CT of the chest, abdomen, pelvis shows no acute process. On reassessment ec2 patient is well-appearing in no acute distress. Will discharge home have her follow the primary care doctor. . 05 06:55 Order name: Basic Metabolic Panel; Complete Time: 07:56 sp4 06/22 06:55 Order name: CBC with Diff; Complete Time: 07:56 sp4 06/22 06:55 Order name: LFT's; Complete Time: 07:56 sp4 06/22 06:55 Order name: Magnesium; Complete Time: 07:56 sp4 06/22 06:55 Order name: NT PRO-BNP; Complete Time: 07:56 sp4 06/22 06:55 Order name: PT-INR; Complete Time: 08:10 sp4 06/22 06:55 Order name: Troponin HS; Complete Time: 07:56 sp4 06/22 06:55 Order name: XRAY Chest (1 view); Complete Time: 07:56 sp4 06/22 06:56 Order name: CT Chest, Abdomen, Pelvis - W/Contrast; Complete Time: 08:20 sp4 06/22 06:55 Order name: Cardiac monitoring; Complete Time: 07:12 sp4 06/22 06:55 Order name: EKG - Nurse/Tech; Complete Time: 07:12 sp4 06/22 06:55 Order name: IV Saline Lock; Complete Time: 07:12 sp4 06/22 06:55 Order name: Labs collected and sent; Complete Time: 07:12 sp4 06/22 06:55 Order name: O2 Per Protocol; Complete Time: 07:12 sp4 06/22 06:55 Order name: O2 Sat Monitoring; Complete Time: 07:12 sp4 EC:56 Rate is 64 beats/min. Rhythm is regular, Normal Sinus Rhythm. QRS [place] is Normal. OR sp4 interval is normal. QRS interval is normal. QT interval is normal. No Q waves. T waves are Normal. No ST changes noted. Clinical impression: Normal ECG. Interpreted by me. Reviewed by me. Administered Medications: 07:12 Drug: morphine IVP or IV 4 mg IVP once over 4 mins Route: IVP; Infused Over: 4 mins; bm8 Site: left antecubital; 07:30 Follow up: Response: No adverse reaction; Pain is decreased rs5 07:12 Drug: diphenhydrAMINE IVP 25 mg IVP once Route: IVP; Site: left antecubital; bm8 07:30 Follow up: Response: No adverse reaction rs5 07:12 Drug: Ondansetron IVP 4 mg IVP once; over 2 minutes Route: IVP; Site: left antecubital; bm8 07:30 Follow up: Response: No adverse reaction rs5 07:12 Drug: Ketorolac IVP 30 mg IVP once Route: IVP; Site: left antecubital; bm8 07:30 Follow up: Response: No adverse reaction rs5 07:12 Drug: GI Cocktail without - (Maalox PO 30 ml, Lidocaine Mucous Membrane 2 % 15 bm8 ml) PO once Route: PO; 08:00 Follow up: Response: No adverse reaction rs5 07:12 Drug: NS 0.9% IV 1000 ml IV at 125 ml/hr continuous Route: IV; Rate: 125 ml/hr; Site: bm8 left antecubital; 07:30 Follow up: Response: No adverse reaction rs5 08:50 Follow up: Response: No adverse reaction; IV Status: Completed infusion db Disposition Summary: 06/23/23 08:24 Discharge Ordered Notes: Location: Home ec2 Condition: Stable ec2 Diagnosis - Abdominal pain, Generalized ec2 Followup: ec2 - With: Private Physician - When: - Reason: Re-evaluation by your physician Discharge Instructions: - Discharge Summary Sheet ec2 - Abdominal Pain, Adult ec2 Forms: - Medication Reconciliation Form ec2 - Antibiotic Education ec2 - Prescription Opioid Use ec2 - Patient Portal Instructions ec2 - Leadership Thank You Letter ec2 Prescriptions: - Protonix 40 mg Oral Tablet - take 1 tablet ORAL route once daily; 30 tablet; Refills: 0, Product Selection ec2 Permitted - Zofran 4 mg Oral Tablet - take 1 tablet ORAL route every 12 hours As needed; 20 tablet; Refills: 0, ec2 Product Selection Permitted Signatures: Dispatcher [employer] EDMS Rubina Wilkerson RN RN vc1 Vladimir Lebron MD MD sp4 Lucian Keyes MD MD ec2 Zachary Jules RN RN bm8 Jessica Mcnamara RN db Kristian Mclain RN rs5 Corrections: (The following items were deleted from the chart) 06:55 06:55 Chest Single View+[email or web address] ordered. EDMS EDMS
--- NOTE | 2023-06-23 08:25 | ER ---
Nurse's Notes [facility] Name: Cassia Pinon Age: 68 yrs Sex: Female : 1955 Arrival Date: 06/23/2023 Time: 06:39 Bed 6 Private MD: Diagnosis: Abdominal pain, Generalized Presentation: 06/22 06:53 Chief complaint: Patient states: chest tightness, rib pain. Coronavirus screen: Client vc1 denies travel out of the [place] in the last 14 days. At this time, the client does not indicate any symptoms associated with coronavirus-19. Ebola Screen: Patient negative for fever greater than or equal to 101.5 degrees Fahrenheit, and additional compatible Ebola Virus Disease symptoms Patient denies exposure to infectious person. Patient denies travel to an Ebola-affected area in the 21 days before illness onset. No symptoms or risks identified at this time. Initial Sepsis Screen: Does the patient meet any 2 criteria? No. Patient's initial sepsis screen is negative. Does the patient have a suspected source of infection? No. Patient's initial sepsis screen is negative. Risk Assessment: Do you want to hurt yourself or someone else? Patient reports no desire to harm self or others. Onset of symptoms was June 23, 2023. 06:53 Method Of Arrival: Ambulatory vc1 06:53 Acuity: VANNA 3 vc1 Triage Assessment: 06:57 General: Appears in no apparent distress. uncomfortable, Behavior is anxious. Pain: vc1 Complains of pain in diaphragm and xiphoid area Pain radiates to thoracic area Pain currently is 9 out of 10 on a pain scale. Quality of pain is described as pressure, Pain began suddenly. Cardiovascular: Reports chest pain, Capillary refill < 3 seconds Patient's skin is warm and dry. Chest pain is described as severe. Respiratory: Reports hard to take deep breaths Airway is patent Respiratory effort is even, unlabored, Respiratory pattern is regular, symmetrical. Derm: Skin is intact, is healthy with good turgor, Skin is dry, Skin is normal, Skin temperature is warm. Historical: - Allergies: 06:56 No Known Allergies; vc1 - Home Meds: 06:56 None [Active]; vc1 - PMHx: 06:56 None; vc1 - PSHx: 06:56 None; vc1 - Immunization history:: Adult Immunizations unknown. - Infectious Disease History:: Denies. - Social history:: Smoking status: Patient denies any tobacco usage or history of. - Family history:: not pertinent. Screenin:02 [facility] ED Fall Risk Assessment (Adult) History of falling in the last 3 months, rs5 including since admission No falls in past 3 months (0 pts) Confusion or Disorientation No (0 pts) Intoxicated or Sedated No (0 pts) Impaired Gait No (0 pts) Mobility Assist Device Used No (0 pt) Altered Elimination No (0 pt) Score/Fall Risk Level 0 - 2 = Low Risk Oriented to surroundings, Maintained a safe environment. Abuse screen: Denies threats or abuse. Nutritional screening: No deficits noted. Tuberculosis screening: No symptoms or risk factors identified. Assessment: 07:00 General: Appears in no apparent distress. uncomfortable, Behavior is calm, cooperative. rs5 Pain: Complains of pain in mid epigastric Pain does not radiate. Pain currently is 8 out of 10 on a pain scale. Quality of pain is described as aching, Is continuous. Neuro: Level of Consciousness is awake, alert, obeys commands, Oriented to person, place, time, situation. Cardiovascular: Patient's skin is warm and dry. Rhythm is regular. Respiratory: Airway is patent Respiratory effort is even, unlabored, Respiratory pattern is regular, symmetrical. GI: Abdomen is round non-distended, Abd is soft and non tender X 4 quads. : No signs and/or symptoms were reported regarding the genitourinary system. EENT: No signs and/or symptoms were reported regarding the EENT system. Derm: Skin is intact, Skin is pink, warm \T\ dry. Musculoskeletal: Range of motion: intact in all extremities. 08:05 Reassessment: Patient and/or family updated on plan of care and expected duration. Pain rs5 level reassessed. Patient is alert, oriented x 3, equal unlabored respirations, skin warm/dry/pink. Patient denies pain at this time. Patient states feeling better. 08:30 Reassessment: No changes from previously documented assessment. rs5 08:48 Reassessment: Patient appears in no apparent distress at this time. No changes from db previously documented assessment. Patient and/or family updated on plan of care and expected duration. Pain level reassessed. Patient states feeling better. Patient states symptoms have improved. Vital Signs: 06:53 BP 163 / 83; Pulse 70; Resp 18; Temp 97.4; Pulse Ox 100% ; Weight 75.75 kg; Height 5 vc1 ft. 4 in. ; Pain 9/10; 07:00 BP 183 / 103; Pulse 85; Resp 15; Pulse Ox 96% ; rs5 08:30 BP 134 / 71; Pulse 63; Resp 16; Pulse Ox 96% on R/A; db 06:53 Body Mass Index 28.67 (75.75 kg, 162.56 cm) vc1 06:53 Pain Scale: Adult vc1 Ranger Coma Score: 06:56 Eye Response: spontaneous(4). Motor Response: obeys commands(6). Verbal Response: sp4 oriented(5). Total: 15. ED Course: 06:52 Patient arrived in ED. vk 06:53 Vladimir Lebron MD is Attending Physician. sp4 06:56 Triage completed. vc1 06:56 Kristian Mclain RN is Primary Nurse. rs5 06:57 Arm band placed on right wrist. vc1 07:00 Attending Physician role handed off by Vladimir Lebron MD ec2 07:00 Lucian Keyes MD is Attending Physician. ec2 07:02 Patient has correct armband on for positive identification. Placed in gown. Bed in low rs5 position. Call light in reach. Side rails up X2. 07:02 No provider procedures requiring assistance completed. rs5 07:13 Inserted saline lock: 20 gauge in left antecubital area, using aseptic technique. Blood bm8 collected. 07:14 Report given to marielos sanon. bm8 07:25 XRAY Chest (1 view) In Process Unspecified. EDMS 08:05 CT Chest, Abdomen, Pelvis - W/Contrast In Process Unspecified. EDMS 08:48 Provided Education on: DISCHARGE AND FOLLOWUP. db 08:48 Client placed on continuous cardiac and pulse oximetry monitoring. NIBP monitoring db applied. replanter on. Pulse ox on. NIBP on. 08:48 IV discontinued, intact, bleeding controlled, No redness/swelling at site. db Administered Medications: 07:12 Drug: morphine IVP or IV 4 mg IVP once over 4 mins Route: IVP; Infused Over: 4 mins; bm8 Site: left antecubital; 07:30 Follow up: Response: No adverse reaction; Pain is decreased rs5 07:12 Drug: diphenhydrAMINE IVP 25 mg IVP once Route: IVP; Site: left antecubital; bm8 07:30 Follow up: Response: No adverse reaction rs5 07:12 Drug: Ondansetron IVP 4 mg IVP once; over 2 minutes Route: IVP; Site: left antecubital; bm8 07:30 Follow up: Response: No adverse reaction rs5 07:12 Drug: Ketorolac IVP 30 mg IVP once Route: IVP; Site: left antecubital; bm8 07:30 Follow up: Response: No adverse reaction rs5 07:12 Drug: GI Cocktail without - (Maalox PO 30 ml, Lidocaine Mucous Membrane 2 % 15 bm8 ml) PO once Route: PO; 08:00 Follow up: Response: No adverse reaction rs5 07:12 Drug: NS 0.9% IV 1000 ml IV at 125 ml/hr continuous Route: IV; Rate: 125 ml/hr; Site: bm8 left antecubital; 07:30 Follow up: Response: No adverse reaction rs5 08:50 Follow up: Response: No adverse reaction; IV Status: Completed infusion db Medication: 07:02 VIS not applicable for this client. rs5 Outcome: 08:24 Discharge ordered by . ec2 08:48 Discharged to home ambulatory, with family, db 08:48 Condition: stable 08:48 Discharge instructions given to patient, Instructed on discharge instructions, follow up and referral plans. Prescriptions given X 2, 08:50 Patient left the ED. db Signatures: Dispatcher [employer] EDMS Rubina Wilkerson RN RN vc1 Jessica Mcnamara RN RN db Kristian Mclain RN RN rs5 Vladimir Lebron MD MD sp4 Lucian Keyes MD MD ec2 Maryjo Bates Brad, RN RN bm8 Corrections: (The following items were deleted from the chart) 07:02 07:00 Pain: Complains of pain in chest Pain does not radiate. Pain currently is 8 out rs5 of 10 on a pain scale. Quality of pain is described as aching, Is continuous, rs5 07:15 07:13 Report received from jessica, marielos bm8 bm8
[2023-06-23 09:27] VITALS: BP 134/71; TEMP 97.4; O2SAT 96
--- NOTE | 2023-06-23 13:59 | EKG ---
Test Date: 2023-06-23 Test Time: 06:54:09 Warping Machine Operator: PRAVEEN MEASUREMENT RESULTS: Intervals: Rate: 64 SC: 154 QRSD: 94 QT: 408 QTc: 420 [place]: P: 31 SC: 154 QRS: 69 T: 55 INTERPRETIVE STATEMENTS: Normal sinus rhythm Normal ECG No previous ECG available for comparison Electronically Signed On 06-23-23 13:57:53 CDT by Juan Carlos Armenta
== END 2023-06-23 08:50 | disposition home or self-care (01) ==
LOC: ER 06:39
DX: R10.84 Generalized abdominal pain (principal); R07.9 Chest pain, unspecified; R10.13 Epigastric pain
CPT/HCPCS: 93005; 85025; 80048; 36415; 83735; 85610; 80076; 84484; 83880; 71260; 74177; 71045; Q9967; J1200; J2405; J7030